=== PATIENT | male | born 1955 | race Caucasian/White ===

== ENCOUNTER 2024-06-14 22:52 | Inpatient (IN) | payer MEDICARE, SELFPAY ==
[2024-06-15 00:39] VITALS: BMI 31.2
[2024-06-15] MEDS: traZODone HCL 100 MG TABLET 200 MG PO (00:55)
[2024-06-15] MEDS: QUEtiapine Fumarate 200 MG TABLET PO ×2 (00:55→20:15)
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
[2024-06-15 06:07] LABS: Glucose, Whole Blood 109 mg/dL (60-115)
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
[2024-06-15 08:43] LABS: Cholesterol 155 mg/dL (<200); HDL Cholesterol 38 mg/dL (>40); LDL Cholesterol Calculated 48 mg/dL (<100); Triglycerides 349 mg/dL (<150)
[2024-06-15 08:59] VITALS: BP 171/83; PULSE 99; RESP 15; TEMP 36.7; O2SAT 100
[2024-06-15 09:00] LABS: Free T4 (Free Thyroxine) 0.69 ng/dL (0.71-1.85); Thyroid Stimulating Hormone 0.71 uIU/mL (0.32-4.0)
[2024-06-15] MEDS: Aspirin 81 MG TAB.CHEW PO (09:04)
[2024-06-15] MEDS: Doxazosin Mesylate 2 MG TABLET 4 MG PO (09:04)
[2024-06-15] MEDS: Divalproex Sodium 500 MG TABLET.DR PO ×2 (09:04→20:14)
[2024-06-15] MEDS: Ezetimibe 10 MG TABLET PO (09:04)
[2024-06-15] MEDS: cloNIDine HCL 0.1 MG TABLET PO ×2 (09:04→20:14)
[2024-06-15] MEDS: Ferrous Sulfate 324 MG TABLET.DR PO (09:04)
[2024-06-15 09:09] LABS: Folate 4.9 ng/mL (> or = 4.0); Vitamin B12 952 pg/mL (200-900)
[2024-06-15 09:25] LABS: Estimated Average Glucose 134 mg/dL; Hemoglobin A1C 137.3844 umol/L; Hemoglobin A1c % 6.3 % (<6.0)
[2024-06-15] MEDS: lisinopriL 5 MG TABLET PO (09:28)
[2024-06-15] MEDS: Imipramine HCl 50 MG TABLET PO ×2 (09:28→20:14)
[2024-06-15] MEDS: Bumetanide 1 MG TABLET PO (09:28)
[2024-06-15] MEDS: risperiDONE 1 MG TABLET PO ×2 (13:04→20:14)
--- NOTE | 2024-06-15 13:13 | PM.EVENT ---
Event Note Date of Service: 06/15/24 Event Note: Chart reviewed. Will arrange for HD tomorrow-06/16/24 Time Spent With Patient Time: Total time managing care of this patient today ____ minutes.
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
[2024-06-15 20:00] VITALS: BP 144/68; PULSE 77; RESP 16; TEMP 36.6; O2SAT 96
[2024-06-15] MEDS: Atorvastatin Calcium 80 MG TABLET PO (20:13)
[2024-06-15 20:14] VITALS: BP 144/68; PULSE 77
[2024-06-15] MEDS: Metoprolol Succinate ER 50 MG TAB.ER.24H PO (20:14)
[2024-06-15] MEDS: traZODone HCL 100 MG TABLET PO (20:15)
[2024-06-16 08:23] VITALS: BP 136/74
[2024-06-16] MEDS: Ezetimibe 10 MG TABLET PO (08:23)
[2024-06-16] MEDS: Doxazosin Mesylate 2 MG TABLET 4 MG PO (08:23)
[2024-06-16] MEDS: Imipramine HCl 50 MG TABLET PO ×2 (08:24→20:39)
[2024-06-16] MEDS: risperiDONE 1 MG TABLET PO ×2 (08:24→20:39)
[2024-06-16] MEDS: Divalproex Sodium 500 MG TABLET.DR PO ×2 (08:24→20:39)
[2024-06-16] MEDS: Aspirin 81 MG TAB.CHEW PO (08:24)
[2024-06-16] MEDS: Ferrous Sulfate 324 MG TABLET.DR PO (08:24)
[2024-06-16 08:33] VITALS: BP 136/74; PULSE 67; RESP 18; TEMP 36.1; O2SAT 95
[2024-06-16 10:19] LABS: HBS Num1 119.28 mIU/mL (0-7.99); HBc Num1 0.11 S/CO (0.00-0.79); HBsAGNum1 0.25 S/CO (0.00-0.99); Hepatitis B Core Antibody Nonreactive (Nonreactive); Hepatitis B Surface Antigen Negative (Negative); ~Hepatitis B Surface Antibody REACTIVE (Nonreactive)
[2024-06-16 10:32] LABS: Anion Gap 16 (12-20); Blood Urea Nitrogen 37 mg/dL (9-16); Calcium 9.2 mg/dL (8.4-10.2); Carbon Dioxide 25 mmol/L (22-29); Chloride 99 mmol/L (96-108); Estimated Glomerular Filt Rate 11; Glucose Random 210 mg/dL (60-115); Potassium 3.9 mmol/L (3.3-5.1); Sodium 136 mmol/L (135-145)
[2024-06-16 13:03] VITALS: BP 133/67; PULSE 72
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
[2024-06-16 20:00] VITALS: BP 147/70; PULSE 68; RESP 18; TEMP 36.3; O2SAT 98
[2024-06-16] MEDS: cloNIDine HCL 0.1 MG TABLET PO (20:39)
[2024-06-16] MEDS: QUEtiapine Fumarate 200 MG TABLET PO (20:39)
[2024-06-16] MEDS: Atorvastatin Calcium 80 MG TABLET PO (20:39)
[2024-06-16] MEDS: traZODone HCL 100 MG TABLET PO (20:40)
[2024-06-16] MEDS: Metoprolol Succinate ER 50 MG TAB.ER.24H PO (20:40)
[2024-06-17] MEDS: Acetaminophen 325 MG TABLET 650 MG PO (00:55)
[2024-06-17] MEDS: QUEtiapine Fumarate 50 MG TABLET PO ×2 (00:57→16:48)
[2024-06-17 08:53] VITALS: BP 186/78; PULSE 72; RESP 18; TEMP 36.6; O2SAT 100
[2024-06-17] MEDS: Ferrous Sulfate 324 MG TABLET.DR PO (09:15)
[2024-06-17] MEDS: cloNIDine HCL 0.1 MG TABLET PO ×2 (09:16→20:07)
[2024-06-17] MEDS: lisinopriL 5 MG TABLET PO (09:16)
[2024-06-17] MEDS: Imipramine HCl 50 MG TABLET PO ×2 (09:16→20:06)
[2024-06-17] MEDS: Ezetimibe 10 MG TABLET PO (09:16)
[2024-06-17] MEDS: Aspirin 81 MG TAB.CHEW PO (09:16)
[2024-06-17] MEDS: Bumetanide 1 MG TABLET PO (09:17)
[2024-06-17] MEDS: Divalproex Sodium 500 MG TABLET.DR PO ×2 (09:17→20:08)
[2024-06-17] MEDS: Doxazosin Mesylate 2 MG TABLET 4 MG PO (09:17)
[2024-06-17] MEDS: risperiDONE 1 MG TABLET PO ×2 (09:17→20:08)
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
[2024-06-17 20:07] VITALS: BP 145/66; PULSE 68
[2024-06-17] MEDS: QUEtiapine Fumarate 200 MG TABLET PO (20:07)
[2024-06-17] MEDS: Atorvastatin Calcium 80 MG TABLET PO (20:07)
[2024-06-17] MEDS: Metoprolol Succinate ER 50 MG TAB.ER.24H PO (20:07)
[2024-06-17] MEDS: traZODone HCL 100 MG TABLET PO (20:08)
[2024-06-17 20:34] VITALS: BP 145/66; PULSE 68; RESP 17; TEMP 36.5; O2SAT 98
[2024-06-18 08:34] VITALS: BP 138/66; PULSE 77; RESP 16; TEMP 36; O2SAT 98
[2024-06-18] MEDS: Bumetanide 1 MG TABLET PO (08:35)
[2024-06-18] MEDS: Divalproex Sodium 500 MG TABLET.DR PO ×2 (08:35→21:18)
[2024-06-18] MEDS: risperiDONE 1 MG TABLET PO ×2 (08:35→21:20)
[2024-06-18] MEDS: Aspirin 81 MG TAB.CHEW PO (08:35)
[2024-06-18] MEDS: lisinopriL 5 MG TABLET PO (08:35)
[2024-06-18] MEDS: Imipramine HCl 50 MG TABLET PO ×2 (08:35→21:21)
[2024-06-18] MEDS: Ezetimibe 10 MG TABLET PO (08:36)
[2024-06-18] MEDS: Doxazosin Mesylate 2 MG TABLET 4 MG PO (08:36)
[2024-06-18] MEDS: Ferrous Sulfate 324 MG TABLET.DR PO (08:36)
[2024-06-18] MEDS: cloNIDine HCL 0.1 MG TABLET PO ×2 (08:36→21:21)
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
[2024-06-18] MEDS: Acetaminophen 325 MG TABLET 650 MG PO (18:36)
[2024-06-18 20:00] VITALS: BP 174/77; PULSE 77; RESP 16; TEMP 35.8; O2SAT 95
[2024-06-18] MEDS: traZODone HCL 100 MG TABLET PO (21:18)
[2024-06-18 21:19] VITALS: BP 167/80; PULSE 77
[2024-06-18] MEDS: Atorvastatin Calcium 80 MG TABLET PO (21:19)
[2024-06-18] MEDS: Metoprolol Succinate ER 50 MG TAB.ER.24H PO (21:19)
[2024-06-18] MEDS: QUEtiapine Fumarate 200 MG TABLET PO (21:20)
[2024-06-18 21:21] VITALS: BP 162/80
[2024-06-19] MEDS: Acetaminophen 325 MG TABLET 650 MG PO (01:07)
[2024-06-19 08:00] VITALS: BP 177/81; PULSE 70; RESP 18; TEMP 36.1; O2SAT 97
--- NOTE | 2024-06-19 09:53 | PM.CNNEP ---
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 Usually undergoes dialysis Tuesday. He has been admitted to psychiatric floor. Consultation has been requested for the management of dialysis requirements. [facility] Past Medical History Medical History (Updated 06/19/24 @ 09:54 by Samuel Frederick MD) [place] toxicity ESRD on hemodialysis HTN (hypertension) HLD (hyperlipidemia) Surgical History Surgical History (Updated 06/15/24 @ 18:13 by NARGIS Gomes) History of total right hip arthroplasty Social History Social History Household Members: None Housing: Condominium Do you presently have visiting nurse or other home services: No Patient Tobacco Use Status: Never used Tobacco Tobacco use type: Cigarette Smoked in Last 30 Days: No e-Cigarette/Vaping Use: Former Use Patient Interested in Nicotine Replacement: No Patient Given Instructions on How to Stop Smoking: No Second Hand Smoke Exposure: No Use of substances other than those prescribed or required for medical reasons: No Currently Displaying Signs/Symptoms of Drug Intoxication Withdrawal: No Have you been hit, kicked, punched, or otherwise hurt by someone within the past year? If so, by whom?: No Do you feel safe in your current relationship?: No Is there a partner from a previous relationship who is making you feel unsafe now?: No Are you made to feel afraid or neglected: No Spiritual Healthcare Practices: [facility] but stopped due to dialysis Advance Directives: No Advance Directives Information Provided: No Do you have thoughts of harming others: None Do you have a plan to hurt others: No Plan Recently lost weight without trying: No Nutrition Risks: No Nutritional Risk Poor oral hygiene: No service: No Sexual orientation: Straight/Heterosexual Meds Allergies Allergy/AdvReac Type Severity Reaction Status Date / Time amlodipine Allergy Unknown Unknown Verified 06/14/24 19:14 Active Medications: Current Medications Acetaminophen (Acetaminophen 325 Mg Tablet) 650 mg PO Q6H PRN PRN Reason: Headache/Pain Mild Scale (1-3) Last Admin: 06/19/24 01:07 Dose: 650 mg Al Hydroxide/Mg Hydroxide (Magnesium Hydrox/Alum Hydrox 30 Ml Oral.Susp) 30 ml PO Q6H PRN PRN Reason: Heartburn/Nausea Aspirin (Aspirin 81 Mg Tab.Chew) 81 mg PO DAILY [facility] Last Admin: 06/18/24 08:35 Dose: 81 mg Atorvastatin Calcium (Atorvastatin Calcium 80 Mg Tablet) 80 mg PO BEDTIME [facility] Last Admin: 06/18/24 21:19 Dose: 80 mg Bumetanide (Bumetanide 1 Mg Tablet) 1 mg PO DAILY [facility]; Protocol Last Admin: 06/18/24 08:35 Dose: 1 mg Clonidine HCl (Clonidine Hcl 0.1 Mg Tablet) 0.1 mg PO BID [facility]; Protocol Last Admin: 06/18/24 21:21 Dose: 0.1 mg Divalproex Sodium (Divalproex Sodium 500 Mg Tablet.) 500 mg PO BID [facility] Last Admin: 06/18/24 21:18 Dose: 500 mg Doxazosin Mesylate (Doxazosin Mesylate 2 Mg Tablet) 4 mg PO DAILY [facility]; Protocol Last Admin: 06/18/24 08:36 Dose: 4 mg Ezetimibe (Ezetimibe 10 Mg Tablet) 10 mg PO DAILY [facility] Last Admin: 06/18/24 08:36 Dose: 10 mg Epoetin Prakash (Epoetin Prakash 10,000 Unit/Ml Vial) 10,[address] unit [address] [email or web address] [facility] Ferrous Sulfate (Ferrous Sulfate 324 Mg Tablet.) 324 mg PO DAILY [facility] Last Admin: 06/18/24 08:36 Dose: 324 mg Imipramine HCl (Imipramine Hcl 50 Mg Tablet) 50 mg PO BID [facility] Last Admin: 06/18/24 21:21 Dose: 50 mg Lisinopril (Lisinopril 5 Mg Tablet) 5 mg PO DAILY [facility]; Protocol Last Admin: 06/18/24 08:35 Dose: 5 mg Magnesium Hydroxide (Milk Of Magnesia 30 Ml Oral.Susp) 30 ml PO DAILY PRN PRN Reason: Constipation Metoprolol Succinate (Metoprolol Succinate Er 50 Mg Tab.Er.24h) 50 mg PO BEDTIME [facility]; Protocol Last Admin: 06/18/24 21:19 Dose: 50 mg Nicotine (Nicotine 21 Mg Patch.Td24) 21 mg TRANSDERMA DAILY PRN PRN Reason: Nicotine Cravings Nicotine Polacrilex (Nicotine Polacrilex 2 Mg Gum) 4 mg BUCCAL Q2H PRN PRN Reason: Nicotine Cravings Quetiapine Fumarate (Quetiapine Fumarate 200 Mg Tablet) 200 mg PO BEDTIME [facility] Last Admin: 06/18/24 21:20 Dose: 200 mg Quetiapine Fumarate (Quetiapine Fumarate 50 Mg Tablet) 50 mg PO Q6H PRN PRN Reason: agitation Last Admin: 06/17/24 16:48 Dose: 50 mg Risperidone (Risperidone 1 Mg Tablet) 1 mg PO BID [facility] Last Admin: 06/18/24 21:20 Dose: 1 mg Trazodone HCl (Trazodone Hcl 100 Mg Tablet) 100 mg PO BEDTIME [facility] Last Admin: 06/18/24 21:18 Dose: 100 mg Home Medications ?Medication ?Instructions ?Recorded ?Confirmed ?Last Taken ?Type bumetanide 1 mg tablet 1 mg PO DAILY 06/14/24 06/14/24 Unknown History clonidine HCl 0.1 mg tablet 0.1 mg PO BID 06/14/24 06/14/24 Unknown History divalproex 500 mg tablet,delayed 500 mg PO BID 06/14/24 06/14/24 Unknown History release doxazosin 4 mg tablet 4 mg PO DAILY 06/14/24 06/14/24 Unknown History imipramine HCl 50 mg tablet 50 mg PO BID 06/14/24 06/14/24 Unknown History quetiapine 100 mg tablet 200 mg PO BEDTIME 06/14/24 06/14/24 Unknown History rosuvastatin 20 mg tablet 20 mg PO BEDTIME 06/14/24 06/14/24 Unknown History aspirin 81 mg tablet 81 mg PO DAILY 06/15/24 06/15/24 Unknown History epoetin prakash 10,000 unit/mL 10,000 unit IV 3XW 06/15/24 06/15/24 Unknown History injection solution (Procrit) ezetimibe 10 mg tablet 10 mg PO DAILY 06/15/24 06/15/24 Unknown History ferrous sulfate 325 mg (65 mg 325 mg PO DAILY 06/15/24 06/15/24 Unknown History iron) tablet lisinopril 5 mg tablet 5 mg PO QAM 06/15/24 06/15/24 Unknown History metoprolol succinate 50 mg 50 mg PO BEDTIME 06/15/24 06/15/24 Unknown History tablet,extended release 24 hr omega-3 fatty acids 500 mg capsule 500 mg PO DAILY 06/15/24 06/15/24 Unknown History quetiapine 25 mg tablet 25 mg PO BID PRN auditory 06/15/24 06/15/24 Unknown History hallucination risperidone 0.5 mg tablet 0.5 mg PO BEDTIME 06/15/24 06/15/24 Unknown History trazodone 100 mg tablet 100 mg PO QAM 06/15/24 06/15/24 Unknown History trazodone 100 mg tablet 200 mg PO BEDTIME 06/15/24 06/15/24 Unknown History Physical Exam Vital Signs: Last Vital Signs Temp 96.9 F 06/19/24 08:00 Pulse 70 06/19/24 08:00 Resp 18 06/19/24 08:00 BP 177/81 H 06/19/24 08:00 Pulse Ox 97 06/19/24 08:00 O2 Del Method Room Air 06/19/24 08:00 BMI result Body Mass Index 31.2 Const General: comfortable; No acute distress Orientation/consciousness: patient oriented x3 Eyes General: appearance normal, both eyes and all related structures Visual Grant: normal visual grant by confrontation Neck Neck: Yes supple and Yes no JVD Resp Effort & Inspection: normal respiratory effort and respiratory effort not decreased Auscultation: rhonchi Cardio Palpation: no palpable S3 and no palpable S4 Heart sounds: no rubs GI Inspection: Yes normal to inspection Palpation (GI): Soft to palpation Percussion: Yes normal to percussion Auscultation: normal bowel sounds General: Yes no CVA tenderness Back/Spine/Pelvis Back: no CVA tenderness Skin General skin exam: no petechiae and no purpura Neuro General: patient oriented x3 and no focal motor deficits Extrem General: No clubbing and Yes edema (Trace) Results Lab Results 06/16/24 09:10 Lab results: Chemistry 06/16/24 09:10 Sodium 136 Potassium 3.9 Carbon Dioxide 25 BUN 37 H Creatinine 5.43 H* Calcium 9.2 Assessment and Plan (1) End stage renal disease: Status: Acute Plan 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 On hemodialysis for about a year. Currently has no signs or symptoms of uremia. Fluid status is acceptable. Continue hemodialysis 3 times a week. By AV shunt in left arm Check hemoglobin prior to next dialysis. Ordered. Based on hemoglobin I will arrange for Epogen. Calcium is in normal range. Check PTH prior to next dialysis. Ordered. Blood pressure is acceptable. She will follow along with the team. Procedures Date of Service Date of Service: 06/19/24
[2024-06-19 12:06] VITALS: BP 138/60; PULSE 70; RESP 18; TEMP 36; O2SAT 97
[2024-06-19] MEDS: Doxazosin Mesylate 2 MG TABLET 4 MG PO (12:08)
[2024-06-19] MEDS: Bumetanide 1 MG TABLET PO (12:09)
[2024-06-19] MEDS: Imipramine HCl 50 MG TABLET PO ×2 (12:09→20:39)
[2024-06-19] MEDS: lisinopriL 5 MG TABLET PO (12:10)
[2024-06-19] MEDS: Aspirin 81 MG TAB.CHEW PO (12:10)
[2024-06-19] MEDS: cloNIDine HCL 0.1 MG TABLET PO ×2 (12:10→20:38)
[2024-06-19] MEDS: Ferrous Sulfate 324 MG TABLET.DR PO (12:11)
[2024-06-19] MEDS: risperiDONE 1 MG TABLET PO ×2 (12:12→20:40)
[2024-06-19] MEDS: Ezetimibe 10 MG TABLET PO (12:12)
[2024-06-19] MEDS: Divalproex Sodium 500 MG TABLET.DR PO ×2 (12:12→20:39)
--- NOTE | 2024-06-19 15:37 | HO.PSYCHPN ---
Subjective Subjective Date of Service: 06/19/24 Reason For Visit: Schizophrenia, Cocaine Dependence, Cannabis Depend Subjective Notes: Conditional Voluntary Interim History: The nursing staff reported the patient had been compliant with treatment. Today he went to dialysis as scheduled. He states that he is very anxious about the court days. His brother called and provided the following information. He has 2 [address] days 1 for tomorrow regarding extension of his restriction order and another 1 for assault and battery against him. We wrote a letter to the court explaining about that he is currently admitted into the hospital. On interview the patient remains very paranoid against his brother he stated that he does not want to see him ever again. He is fully aware that he is having restriction order. Mental Status Exam Mental Status Exam Patient Appearance: Appropriate Patient Orientation: Person and Situation Level of Consciousness: Awake and Appropriate Patient Behavior: Guarded and Passive Mood Description: Withdrawn Affect Description: Constricted Patient Cognition Impaired: Yes Ability to Follow Directions: Good Speech Pattern: Clear Hallucinations: None Delusions: Paranoid Ideation and Ideas of Reference Thought Process: Illogical and Distracted Thought Content: positive for Preoccupation and positive for Thought Blocking Judgement: Poor Diagnostics Vital Signs (24Hr): Vital Signs - 24 hr 06/18/24 20:00 06/18/24 21:19 06/18/24 21:21 Temperature 96.5 F L Pulse Rate 77 77 Respiratory Rate 16 Blood Pressure 174/77 H 167/80 H 162/80 H Pulse Oximetry 95 Oxygen Delivery Method Room Air 06/19/24 08:00 06/19/24 12:06 Temperature 96.9 F 96.8 F Pulse Rate 70 70 Respiratory Rate 18 18 Blood Pressure 177/81 H 138/60 Pulse Oximetry 97 97 Oxygen Delivery Method Room Air Room Air BMI result Body Mass Index 31.2 Labs 06/16/24 09:10 Medications Medications Current Medications Acetaminophen (Acetaminophen 325 Mg Tablet) 650 mg PO Q6H PRN PRN Reason: Headache/Pain Mild Scale (1-3) Last Admin: 06/19/24 01:07 Dose: 650 mg Al Hydroxide/Mg Hydroxide (Magnesium Hydrox/Alum Hydrox 30 Ml Oral.Susp) 30 ml PO Q6H PRN PRN Reason: Heartburn/Nausea Aspirin (Aspirin 81 Mg Tab.Chew) 81 mg PO DAILY [facility] Last Admin: 06/19/24 12:10 Dose: 81 mg Atorvastatin Calcium (Atorvastatin Calcium 80 Mg Tablet) 80 mg PO BEDTIME [facility] Last Admin: 06/18/24 21:19 Dose: 80 mg Bumetanide (Bumetanide 1 Mg Tablet) 1 mg PO DAILY [facility]; Protocol Last Admin: 06/19/24 12:09 Dose: 1 mg Clonidine HCl (Clonidine Hcl 0.1 Mg Tablet) 0.1 mg PO BID [facility]; Protocol Last Admin: 06/19/24 12:10 Dose: 0.1 mg Divalproex Sodium (Divalproex Sodium 500 Mg Tablet.) 500 mg PO BID [facility] Last Admin: 06/19/24 12:12 Dose: 500 mg Doxazosin Mesylate (Doxazosin Mesylate 2 Mg Tablet) 4 mg PO DAILY [facility]; Protocol Last Admin: 06/19/24 12:08 Dose: 4 mg Ezetimibe (Ezetimibe 10 Mg Tablet) 10 mg PO DAILY [facility] Last Admin: 06/19/24 12:12 Dose: 10 mg Epoetin Prakash (Epoetin Prakash 10,000 Unit/Ml Vial) 10,000 unit IVPUSH [id number]@1800 [facility] Ferrous Sulfate (Ferrous Sulfate 324 Mg Tablet.) 324 mg PO DAILY [facility] Last Admin: 06/19/24 12:11 Dose: 324 mg Imipramine HCl (Imipramine Hcl 50 Mg Tablet) 50 mg PO BID [facility] Last Admin: 06/19/24 12:09 Dose: 50 mg Lisinopril (Lisinopril 5 Mg Tablet) 5 mg PO DAILY [facility]; Protocol Last Admin: 06/19/24 12:10 Dose: 5 mg Magnesium Hydroxide (Milk Of Magnesia 30 Ml Oral.Susp) 30 ml PO DAILY PRN PRN Reason: Constipation Metoprolol Succinate (Metoprolol Succinate Er 50 Mg Tab.Er.24h) 50 mg PO BEDTIME [facility]; Protocol Last Admin: 06/18/24 21:19 Dose: 50 mg Nicotine (Nicotine 21 Mg Patch.Td24) 21 mg TRANSDERMA DAILY PRN PRN Reason: Nicotine Cravings Nicotine Polacrilex (Nicotine Polacrilex 2 Mg Gum) 4 mg BUCCAL Q2H PRN PRN Reason: Nicotine Cravings Quetiapine Fumarate (Quetiapine Fumarate 200 Mg Tablet) 200 mg PO BEDTIME [facility] Last Admin: 06/18/24 21:20 Dose: 200 mg Quetiapine Fumarate (Quetiapine Fumarate 50 Mg Tablet) 50 mg PO Q6H PRN PRN Reason: agitation Last Admin: 06/17/24 16:48 Dose: 50 mg Risperidone (Risperidone 1 Mg Tablet) 1 mg PO BID [facility] Last Admin: 06/19/24 12:12 Dose: 1 mg Trazodone HCl (Trazodone Hcl 100 Mg Tablet) 100 mg PO BEDTIME [facility] Last Admin: 06/18/24 21:18 Dose: 100 mg Allergies Allergies Allergy/AdvReac Type Severity Reaction Status Date / Time amlodipine Allergy Unknown Unknown Verified 06/14/24 19:14 Assessment & Plan Assessment & Plan (1) End stage renal disease: Status: Acute Code(s): N18.6 - End stage renal disease Plan 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 On hemodialysis for about a year. Currently has no signs or symptoms of uremia. Fluid status is acceptable. Continue hemodialysis 3 times a week. By AV shunt in left arm Check hemoglobin prior to next dialysis. Ordered. Based on hemoglobin I will arrange for Epogen. Calcium is in normal range. Check PTH prior to next dialysis. Ordered. Blood pressure is acceptable. Plan 1. Continue with Risperdal as prescribed. 2. Letter to the court. 3. We will discuss with the team the possibility to refer him to [facility]. Reason for continued inpatient stay Substantial Risk for: inability to function, rapid decompensation and med/psych decompensation Time Spent With Patient Time: Total time managing care of this patient today __20__ minutes.
--- NOTE | 2024-06-19 16:56 | PC.NURSE ---
Procrit is ordered IVP today at 1800 patient does not have IV access. Call out to Irma at dialysis to clarify order. She reached out to Dr Frederick. CBC ordered tomorrow by Dr Frederick and per Dr Leidy OLIVEIRA to hold Procrit today. Need for Procrit will be decided tomorrow by .
[2024-06-19 20:00] VITALS: BP 140/67; PULSE 68; RESP 18; TEMP 36.6; O2SAT 97
[2024-06-19 20:38] VITALS: BP 140/67
[2024-06-19 20:39] VITALS: BP 140/67; PULSE 68
[2024-06-19] MEDS: Metoprolol Succinate ER 50 MG TAB.ER.24H PO (20:39)
[2024-06-19] MEDS: QUEtiapine Fumarate 200 MG TABLET PO (20:39)
[2024-06-19] MEDS: Atorvastatin Calcium 80 MG TABLET PO (20:39)
[2024-06-19] MEDS: traZODone HCL 100 MG TABLET PO (20:40)
[2024-06-20] MEDS: Acetaminophen 325 MG TABLET 650 MG PO (01:17)
[2024-06-20] MEDS: QUEtiapine Fumarate 50 MG TABLET PO ×2 (01:17→14:15)
[2024-06-20 09:44] VITALS: BP 170/74; PULSE 71; RESP 15; TEMP 36.8; O2SAT 97
[2024-06-20] MEDS: Imipramine HCl 50 MG TABLET PO ×2 (09:45→20:24)
[2024-06-20] MEDS: cloNIDine HCL 0.1 MG TABLET PO ×2 (09:45→20:23)
[2024-06-20] MEDS: Bumetanide 1 MG TABLET PO (09:45)
[2024-06-20] MEDS: Divalproex Sodium 500 MG TABLET.DR PO ×2 (09:45→20:24)
[2024-06-20] MEDS: Aspirin 81 MG TAB.CHEW PO (09:45)
[2024-06-20] MEDS: Ezetimibe 10 MG TABLET PO (09:45)
[2024-06-20] MEDS: Ferrous Sulfate 324 MG TABLET.DR PO (09:46)
[2024-06-20] MEDS: risperiDONE 1 MG TABLET PO (09:46)
[2024-06-20] MEDS: lisinopriL 5 MG TABLET PO (09:46)
[2024-06-20] MEDS: Doxazosin Mesylate 2 MG TABLET 4 MG PO (09:46)
--- NOTE | 2024-06-20 13:10 | HO.PSYCHPN ---
Subjective Subjective Date of Service: 06/20/24 Reason For Visit: Schizophrenia, Cocaine Dependence, Cannabis Depend Subjective Notes: Conditional Voluntary Interim History: The nursing staff reported the patient had hemodialysis, he reported anxiety regarding his legal cases. Remains paranoid. On interview I offer him [facility] services so he can helping in his legal case. He will consider that. We are going to increase Risperdal up to 3 mg a day. Mental Status Exam Mental Status Exam Patient Appearance: Appropriate Patient Orientation: Person and Situation Level of Consciousness: Awake and Appropriate Patient Behavior: Guarded and Passive Mood Description: Withdrawn Affect Description: Constricted Patient Cognition Impaired: Yes Ability to Follow Directions: Good Speech Pattern: Clear Hallucinations: None Delusions: Paranoid Ideation and Ideas of Reference Thought Process: Distracted and Slowed Thinking Thought Content: positive for [place] and positive for Poverty of Content Judgement: Fair Diagnostics Vital Signs (24Hr): Vital Signs - 24 hr 06/19/24 20:00 06/19/24 20:38 06/19/24 20:39 Temperature 97.9 F Pulse Rate 68 68 Respiratory Rate 18 Blood Pressure 140/67 H 140/67 H 140/67 H Pulse Oximetry 97 Oxygen Delivery Method Room Air 06/20/24 09:44 Temperature 98.2 F Pulse Rate 71 Respiratory Rate 15 Blood Pressure 170/74 H Pulse Oximetry 97 Oxygen Delivery Method Room Air BMI result Body Mass Index 31.2 Labs 06/16/24 09:10 Medications Medications Current Medications Acetaminophen (Acetaminophen 325 Mg Tablet) 650 mg PO Q6H PRN PRN Reason: Headache/Pain Mild Scale (1-3) Last Admin: 06/20/24 01:17 Dose: 650 mg Al Hydroxide/Mg Hydroxide (Magnesium Hydrox/Alum Hydrox 30 Ml Oral.Susp) 30 ml PO Q6H PRN PRN Reason: Heartburn/Nausea Aspirin (Aspirin 81 Mg Tab.Chew) 81 mg PO DAILY [facility] Last Admin: 06/20/24 09:45 Dose: 81 mg Atorvastatin Calcium (Atorvastatin Calcium 80 Mg Tablet) 80 mg PO BEDTIME [facility] Last Admin: 06/19/24 20:39 Dose: 80 mg Bumetanide (Bumetanide 1 Mg Tablet) 1 mg PO DAILY [facility]; Protocol Last Admin: 06/20/24 09:45 Dose: 1 mg Clonidine HCl (Clonidine Hcl 0.1 Mg Tablet) 0.1 mg PO BID [facility]; Protocol Last Admin: 06/20/24 09:45 Dose: 0.1 mg Divalproex Sodium (Divalproex Sodium 500 Mg Tablet.) 500 mg PO BID [facility] Last Admin: 06/20/24 09:45 Dose: 500 mg Doxazosin Mesylate (Doxazosin Mesylate 2 Mg Tablet) 4 mg PO DAILY [facility]; Protocol Last Admin: 06/20/24 09:46 Dose: 4 mg Ezetimibe (Ezetimibe 10 Mg Tablet) 10 mg PO DAILY [facility] Last Admin: 06/20/24 09:45 Dose: 10 mg Epoetin Prakash (Epoetin Prakash 10,000 Unit/Ml Vial) 10,000 unit IVPUSH [id number]@1800 [facility] Last Admin: 06/19/24 16:55 Dose: Not Given Ferrous Sulfate (Ferrous Sulfate 324 Mg Tablet.) 324 mg PO DAILY [facility] Last Admin: 06/20/24 09:46 Dose: 324 mg Imipramine HCl (Imipramine Hcl 50 Mg Tablet) 50 mg PO BID [facility] Last Admin: 06/20/24 09:45 Dose: 50 mg Lisinopril (Lisinopril 5 Mg Tablet) 5 mg PO DAILY [facility]; Protocol Last Admin: 06/20/24 09:46 Dose: 5 mg Magnesium Hydroxide (Milk Of Magnesia 30 Ml Oral.Susp) 30 ml PO DAILY PRN PRN Reason: Constipation Metoprolol Succinate (Metoprolol Succinate Er 50 Mg Tab.Er.24h) 50 mg PO BEDTIME [facility]; Protocol Last Admin: 06/19/24 20:39 Dose: 50 mg Nicotine (Nicotine 21 Mg Patch.Td24) 21 mg TRANSDERMA DAILY PRN PRN Reason: Nicotine Cravings Nicotine Polacrilex (Nicotine Polacrilex 2 Mg Gum) 4 mg BUCCAL Q2H PRN PRN Reason: Nicotine Cravings Quetiapine Fumarate (Quetiapine Fumarate 200 Mg Tablet) 200 mg PO BEDTIME [facility] Last Admin: 06/19/24 20:39 Dose: 200 mg Quetiapine Fumarate (Quetiapine Fumarate 50 Mg Tablet) 50 mg PO Q6H PRN PRN Reason: agitation Last Admin: 06/20/24 01:17 Dose: 50 mg Risperidone (Risperidone 1 Mg Tablet) 1 mg PO BID [facility] Last Admin: 06/20/24 09:46 Dose: 1 mg Trazodone HCl (Trazodone Hcl 100 Mg Tablet) 100 mg PO BEDTIME [facility] Last Admin: 06/19/24 20:40 Dose: 100 mg Allergies Allergies Allergy/AdvReac Type Severity Reaction Status Date / Time amlodipine Allergy Unknown Unknown Verified 06/14/24 19:14 Assessment & Plan Assessment & Plan (1) Schizophrenia: Status: Acute Code(s): F20.9 - Schizophrenia, unspecified (2) End stage renal disease: Status: Acute Code(s): N18.6 - End stage renal disease Plan 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 On hemodialysis for about a year. Currently has no signs or symptoms of uremia. Fluid status is acceptable. Continue hemodialysis 3 times a week. By AV shunt in left arm Check hemoglobin prior to next dialysis. Ordered. Based on hemoglobin I will arrange for Epogen. Calcium is in normal range. Check PTH prior to next dialysis. Ordered. Blood pressure is acceptable. Plan 1. Continue with Risperdal as prescribed. 2. Letter to the court. 3. We will discuss with the team the possibility to refer him to [facility]. 4. Increase Risperdal to 1 mg p.o. q.a.m. and 2 mg p.o. q.h.s.. Reason for continued inpatient stay Substantial Risk for: inability to function, rapid decompensation and med/psych decompensation Time Spent With Patient Time: Total time managing care of this patient today _20___ minutes.
[2024-06-20 20:00] VITALS: BP 156/75; PULSE 76; RESP 18; TEMP 36.3; O2SAT 96
[2024-06-20 20:23] VITALS: BP 156/75; PULSE 76
[2024-06-20] MEDS: traZODone HCL 100 MG TABLET PO (20:23)
[2024-06-20] MEDS: Atorvastatin Calcium 80 MG TABLET PO (20:23)
[2024-06-20] MEDS: QUEtiapine Fumarate 200 MG TABLET PO (20:23)
[2024-06-20] MEDS: Metoprolol Succinate ER 50 MG TAB.ER.24H PO (20:23)
[2024-06-20] MEDS: risperiDONE 2 MG TABLET PO (20:24)
[2024-06-21] MEDS: Acetaminophen 325 MG TABLET 650 MG PO ×2 (00:41→23:07)
[2024-06-21] MEDS: QUEtiapine Fumarate 50 MG TABLET PO ×2 (00:42→23:08)
[2024-06-21 07:00] VITALS: BMI 32.8
[2024-06-21 08:00] VITALS: BP 148/82; PULSE 66; RESP 17; TEMP 36.1; O2SAT 99
[2024-06-21 09:07] LABS: MANUAL DIFF FLAG NO
[2024-06-21 09:13] LABS: Basophils Percent Auto 0.6 % (0-2); Eosinophils Absolute Auto 0.1 X10*3/uL (0.0-0.4); Eosinophils Percent Auto 2.1 % (0-4); Hematocrit 27.4 % (42.0-52.0); Hemoglobin 9.6 g/dl (14.0-18.0); Imm Gran Abs Auto 0.26 X10*3/uL (0.00-0.03); Imm Gran Pct Auto 4.1 % (0.0-0.4); Lymphocytes Absolute Auto 1.7 X10*3/uL (1.2-4.9); Lymphocytes Percent Auto 27.2 % (20-40); Mean Corpuscular Hemoglobin 33.4 pg (27.0-33.0); Mean Corpuscular Volume 95.5 fL (80.0-98.0); Mean Platelet Volume 9.8 fL (9.4-12.4); Monocytes Absolute Auto 0.7 X10*3/uL (0.1-1.2); Monocytes Percent Auto 10.6 % (2-11); Neutrophils Absolute Auto 3.5 x10*3/uL (2.0-8.3); Neutrophils Percent Auto 55.4 % (45-73); Platelet Count 143 X10*3/uL (160-400); Red Blood Count 2.87 X10*6/uL (4.60-5.80); Red Cell Distribution Width 15.2 % (11.0-16.0); White Blood Count 6.3 X10*3/uL (4.8-10.8)
--- NOTE | 2024-06-21 10:26 | W.PM.DNNEP ---
Subjective Subjective Date of Service: 06/21/24 This patient was seen during dialysis. Physical Exam Vital Signs: Vital Signs: Last Vital Signs Temp 96.9 F 06/21/24 08:00 Pulse 66 06/21/24 08:00 Resp 17 06/21/24 08:00 BP 148/82 H 06/21/24 08:00 Pulse Ox 99 06/21/24 08:00 O2 Del Method Room Air 06/21/24 08:00 BMI result Body Mass Index 31.2 Awake. Comfortable. Neck is supple. Mucosa moist. Lungs bilateral scattered rhonchi. Heart S1-S2 heard no gallop. Abdomen soft. Extremities no edema. No involuntary movements. No myoclonus. 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 On hemodialysis for about a year. Currently has no signs or symptoms of uremia. Fluid status is acceptable. Continue hemodialysis 3 times a week. By AV shunt in left arm HgB 9.6 ordered Retacrit Calcium is in normal range. Check PTH prior to next dialysis. Ordered. Blood pressure is acceptable. Time Spent With Patient Time: Total time managing care of this patient today ____ minutes. Procedures Date of Service Date of Service: 06/21/24
[2024-06-21 12:33] VITALS: BP 152/77; PULSE 72
[2024-06-21] MEDS: Bumetanide 1 MG TABLET PO (12:35)
[2024-06-21] MEDS: cloNIDine HCL 0.1 MG TABLET PO ×2 (12:35→20:32)
[2024-06-21] MEDS: Divalproex Sodium 500 MG TABLET.DR PO ×2 (12:35→20:33)
[2024-06-21] MEDS: Imipramine HCl 50 MG TABLET PO ×2 (12:35→20:31)
[2024-06-21] MEDS: risperiDONE 1 MG TABLET PO (12:35)
[2024-06-21] MEDS: Ferrous Sulfate 324 MG TABLET.DR PO (12:36)
[2024-06-21] MEDS: lisinopriL 5 MG TABLET PO (12:36)
[2024-06-21] MEDS: Aspirin 81 MG TAB.CHEW PO (12:36)
[2024-06-21] MEDS: Doxazosin Mesylate 2 MG TABLET 4 MG PO (12:36)
[2024-06-21] MEDS: Ezetimibe 10 MG TABLET PO (12:36)
[2024-06-21] MEDS: Epoetin Alfa-epbx 10,000 UNIT/ML VIAL 10000 UNIT SUBCUT (13:01)
--- NOTE | 2024-06-21 14:28 | HO.PSYCHPN ---
Subjective Subjective Date of Service: 06/21/24 Reason For Visit: Schizophrenia, Cocaine Dependence, Cannabis Depend Interim History: pt requests to review anti-psychotics regimen, which is done. no other requests or complaints. per staff, schizophrenia, cocaine, cannabis. has court tomorrow on criminal charges for trying to stab his brother with a knife. taking meds. anxious. poor sleep. Mental Status Exam Mental Status Exam Patient Appearance: Appropriate Patient Orientation: Person and Situation Level of Consciousness: Awake and Appropriate Patient Behavior: Guarded and Passive Mood Description: Withdrawn Affect Description: Constricted Patient Cognition Impaired: Yes Ability to Follow Directions: Good Speech Pattern: Clear Hallucinations: None Delusions: Paranoid Ideation and Ideas of Reference Thought Process: Distracted and Slowed Thinking Thought Content: positive for [place] and positive for Poverty of Content Judgement: Fair Diagnostics Vital Signs (24Hr): Vital Signs - 24 hr 06/20/24 20:00 06/20/24 20:23 06/20/24 20:23 Temperature 97.3 F Pulse Rate 76 76 Respiratory Rate 18 Blood Pressure 156/75 H 156/75 H 156/75 H Pulse Oximetry 96 Oxygen Delivery Method Room Air 06/21/24 08:00 06/21/24 12:33 Temperature 96.9 F Pulse Rate 66 72 Respiratory Rate 17 Blood Pressure 148/82 H 152/77 H Pulse Oximetry 99 Oxygen Delivery Method Room Air BMI result Body Mass Index 31.2 Labs 06/21/24 09:03 06/16/24 09:10 Labs: Laboratory Results - last 48 hr 06/21/24 09:03 WBC 6.3 RBC 2.87 L Hgb 9.6 L Hct 27.4 L MCV 95.5 MCH 33.4 H MCHC 35.0 RDW 15.2 Plt Count 143 L MPV 9.8 Immature Gran % (Auto) 4.1 H Neut % (Auto) 55.4 Lymph % (Auto) 27.2 [place] % (Auto) 10.6 Eos % (Auto) 2.1 Baso % (Auto) 0.6 Lymph # (Auto) 1.7 [place] # (Auto) 0.7 Eos # (Auto) 0.1 Baso # (Auto) 0.0 Abs Immat Gran (auto) 0.26 H Absolute Neuts (auto) 3.5 Absolute Nucleated RBC 0.000 Nucleated RBC % (auto) 0.0 Medications Medications Current Medications Acetaminophen (Acetaminophen 325 Mg Tablet) 650 mg PO Q6H PRN PRN Reason: Headache/Pain Mild Scale (1-3) Last Admin: 06/21/24 00:41 Dose: 650 mg Al Hydroxide/Mg Hydroxide (Magnesium Hydrox/Alum Hydrox 30 Ml Oral.Susp) 30 ml PO Q6H PRN PRN Reason: Heartburn/Nausea Aspirin (Aspirin 81 Mg Tab.Chew) 81 mg PO DAILY [facility] Last Admin: 06/21/24 12:36 Dose: 81 mg Atorvastatin Calcium (Atorvastatin Calcium 80 Mg Tablet) 80 mg PO BEDTIME [facility] Last Admin: 06/20/24 20:23 Dose: 80 mg Bumetanide (Bumetanide 1 Mg Tablet) 1 mg PO DAILY [facility]; Protocol Last Admin: 06/21/24 12:35 Dose: 1 mg Clonidine HCl (Clonidine Hcl 0.1 Mg Tablet) 0.1 mg PO BID [facility]; Protocol Last Admin: 06/21/24 12:35 Dose: 0.1 mg Divalproex Sodium (Divalproex Sodium 500 Mg Tablet.) 500 mg PO BID [facility] Last Admin: 06/21/24 12:35 Dose: 500 mg Doxazosin Mesylate (Doxazosin Mesylate 2 Mg Tablet) 4 mg PO DAILY [facility]; Protocol Last Admin: 06/21/24 12:36 Dose: 4 mg Ezetimibe (Ezetimibe 10 Mg Tablet) 10 mg PO DAILY [facility] Last Admin: 06/21/24 12:36 Dose: 10 mg Ferrous Sulfate (Ferrous Sulfate 324 Mg Tablet.) 324 mg PO DAILY [facility] Last Admin: 06/21/24 12:36 Dose: 324 mg Imipramine HCl (Imipramine Hcl 50 Mg Tablet) 50 mg PO BID [facility] Last Admin: 06/21/24 12:35 Dose: 50 mg Lisinopril (Lisinopril 5 Mg Tablet) 5 mg PO DAILY [facility]; Protocol Last Admin: 06/21/24 12:36 Dose: 5 mg Magnesium Hydroxide (Milk Of Magnesia 30 Ml Oral.Susp) 30 ml PO DAILY PRN PRN Reason: Constipation Metoprolol Succinate (Metoprolol Succinate Er 50 Mg Tab.Er.24h) 50 mg PO BEDTIME [facility]; Protocol Last Admin: 06/20/24 20:23 Dose: 50 mg Nicotine (Nicotine 21 Mg Patch.Td24) 21 mg TRANSDERMA DAILY PRN PRN Reason: Nicotine Cravings Nicotine Polacrilex (Nicotine Polacrilex 2 Mg Gum) 4 mg BUCCAL Q2H PRN PRN Reason: Nicotine Cravings Quetiapine Fumarate (Quetiapine Fumarate 200 Mg Tablet) 200 mg PO BEDTIME [facility] Last Admin: 06/20/24 20:23 Dose: 200 mg Quetiapine Fumarate (Quetiapine Fumarate 50 Mg Tablet) 50 mg PO Q6H PRN PRN Reason: agitation Last Admin: 06/21/24 00:42 Dose: 50 mg Risperidone (Risperidone 1 Mg Tablet) 1 mg PO DAILY [facility] Last Admin: 06/21/24 12:35 Dose: 1 mg Risperidone (Risperidone 2 Mg Tablet) 2 mg PO BEDTIME [facility] Last Admin: 06/20/24 20:24 Dose: 2 mg Trazodone HCl (Trazodone Hcl 100 Mg Tablet) 100 mg PO BEDTIME [facility] Last Admin: 06/20/24 20:23 Dose: 100 mg Allergies Allergies Allergy/AdvReac Type Severity Reaction Status Date / Time amlodipine Allergy Unknown Unknown Verified 06/14/24 19:14 Assessment & Plan Assessment & Plan (1) Schizophrenia: Status: Acute Code(s): F20.9 - Schizophrenia, unspecified (2) End stage renal disease: Status: Acute Code(s): N18.6 - End stage renal disease Assessment and Plan: 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 On hemodialysis for about a year. Currently has no signs or symptoms of uremia. Fluid status is acceptable. Continue hemodialysis 3 times a week. By AV shunt in left arm HgB 9.6 ordered Retacrit Calcium is in normal range. Check PTH prior to next dialysis. Ordered. Blood pressure is acceptable. Plan 1. Continue with Risperdal as prescribed. 2. Letter to the court. 3. We will discuss with the team the possibility to refer him to [facility]. 4. Increase Risperdal to 1 mg p.o. q.a.m. and 2 mg p.o. q.h.s.. Reason for continued inpatient stay Substantial Risk for: harm to others, inability to function and rapid decompensation Time Spent With Patient Time: Total time managing care of this patient today __25__ minutes.
[2024-06-21 20:00] VITALS: BP 144/74; PULSE 76; RESP 16; TEMP 37.1; O2SAT 97
[2024-06-21] MEDS: risperiDONE 2 MG TABLET PO (20:30)
[2024-06-21] MEDS: QUEtiapine Fumarate 200 MG TABLET PO (20:31)
[2024-06-21 20:32] VITALS: PULSE 74
[2024-06-21] MEDS: traZODone HCL 100 MG TABLET PO (20:32)
[2024-06-21] MEDS: Metoprolol Succinate ER 50 MG TAB.ER.24H PO (20:32)
[2024-06-21] MEDS: Atorvastatin Calcium 80 MG TABLET PO (20:33)
--- NOTE | 2024-06-22 07:51 | P.PNPSI_ITS ---
Subjective Subjective Date of Service: 06/22/24 Reason For Visit: Schizophrenia, Cocaine Dependence, Cannabis Depend Subjective Notes: Conditional Voluntary Interim History: Pt slept through the night. He had dialysis yesterday. He denies suicidal or homicidal ideation. He reports he will never speak with his brother again, at least the one who lives here, his other brother is in [place]. He also denies any plan or intent to harm his brother or anyone else. He denies any concerns with his medications, which he is taking as prescribed. Review of Systems Review of Systems Patient has no acute medical complaints at this time Mental Status Exam Mental Status Exam Narrative: Appearance: wearing casual clothing, good hygiene, in NAD Behavior: cooperative and friendly Psychomotor: no agitation or retardation noted Speech: clear, normal rate/rhythm/volume, spontaneous TP: linear TC: does not want contact with brother, but open to receive psychiatric care and treatment Mood: good Affect: congruent SI: denies HI: denies, including towards brother at this point but still paranoid about him Delusions: paranoid delusions towards brothers Insight/judgment: some improvement now that he is back on medications Memory/cog: alert, oriented Diagnostics Vital Signs (24Hr): Vital Signs - 24 hr 06/21/24 08:00 06/21/24 12:33 06/21/24 20:00 Temperature 96.9 F 98.8 F Pulse Rate 66 72 76 Respiratory Rate 17 16 Blood Pressure 148/82 H 152/77 H 144/74 H Pulse Oximetry 99 97 Oxygen Delivery Method Room Air Room Air 06/21/24 20:32 Temperature Pulse Rate 74 Respiratory Rate Blood Pressure Pulse Oximetry Oxygen Delivery Method BMI result Body Mass Index 31.2 Labs 06/21/24 09:03 06/16/24 09:10 Labs: Laboratory Results - last 48 hr 06/21/24 09:03 WBC 6.3 RBC 2.87 L Hgb 9.6 L Hct 27.4 L MCV 95.5 MCH 33.4 H MCHC 35.0 RDW 15.2 Plt Count 143 L MPV 9.8 Immature Gran % (Auto) 4.1 H Neut % (Auto) 55.4 Lymph % (Auto) 27.2 [place] % (Auto) 10.6 Eos % (Auto) 2.1 Baso % (Auto) 0.6 Lymph # (Auto) 1.7 [place] # (Auto) 0.7 Eos # (Auto) 0.1 Baso # (Auto) 0.0 Abs Immat Gran (auto) 0.26 H Absolute Neuts (auto) 3.5 Absolute Nucleated RBC 0.000 Nucleated RBC % (auto) 0.0 Medications Medications Current Medications Acetaminophen (Acetaminophen 325 Mg Tablet) 650 mg PO Q6H PRN PRN Reason: Headache/Pain Mild Scale (1-3) Last Admin: 06/21/24 23:07 Dose: 650 mg Al Hydroxide/Mg Hydroxide (Magnesium Hydrox/Alum Hydrox 30 Ml Oral.Susp) 30 ml PO Q6H PRN PRN Reason: Heartburn/Nausea Aspirin (Aspirin 81 Mg Tab.Chew) 81 mg PO DAILY [facility]PLAC[facility] BY [facility] Last Admin: 06/21/24 12:36 Dose: 81 mg Atorvastatin Calcium (Atorvastatin Calcium 80 Mg Tablet) 80 mg PO BEDTIME [facility]PLACED BY [facility] Last Admin: 06/21/24 20:33 Dose: 80 mg Bumetanide (Bumetanide 1 Mg Tablet) 1 mg PO DAILY [facility]; Protocol Last Admin: 06/21/24 12:35 Dose: 1 mg Clonidine HCl (Clonidine Hcl 0.1 Mg Tablet) 0.1 mg PO BID [facility]; Protocol Last Admin: 06/21/24 20:32 Dose: 0.1 mg Divalproex Sodium (Divalproex Sodium 500 Mg Tablet.) 500 mg PO BID [facility] Last Admin: 06/21/24 20:33 Dose: 500 mg Doxazosin Mesylate (Doxazosin Mesylate 2 Mg Tablet) 4 mg PO DAILY [facility]; Protocol Last Admin: 06/21/24 12:36 Dose: 4 mg Ezetimibe (Ezetimibe 10 Mg Tablet) 10 mg PO DAILY [facility] Last Admin: 06/21/24 12:36 Dose: 10 mg Ferrous Sulfate (Ferrous Sulfate 324 Mg Tablet.) 324 mg PO DAILY [facility] Last Admin: 06/21/24 12:36 Dose: 324 mg Imipramine HCl (Imipramine Hcl 50 Mg Tablet) 50 mg PO BID [facility] Last Admin: 06/21/24 20:31 Dose: 50 mg Lisinopril (Lisinopril 5 Mg Tablet) 5 mg PO DAILY [facility]; Protocol Last Admin: 06/21/24 12:36 Dose: 5 mg Magnesium Hydroxide (Milk Of Magnesia 30 Ml Oral.Susp) 30 ml PO DAILY PRN PRN Reason: Constipation Metoprolol Succinate (Metoprolol Succinate Er 50 Mg Tab.Er.24h) 50 mg PO BEDTIME [facility]; Protocol Last Admin: 06/21/24 20:32 Dose: 50 mg Nicotine (Nicotine 21 Mg Patch.Td24) 21 mg TRANSDERMA DAILY PRN PRN Reason: Nicotine Cravings Nicotine Polacrilex (Nicotine Polacrilex 2 Mg Gum) 4 mg BUCCAL Q2H PRN PRN Reason: Nicotine Cravings Quetiapine Fumarate (Quetiapine Fumarate 200 Mg Tablet) 200 mg PO BEDTIME [facility] Last Admin: 06/21/24 20:31 Dose: 200 mg Quetiapine Fumarate (Quetiapine Fumarate 50 Mg Tablet) 50 mg PO Q6H PRN PRN Reason: agitation Last Admin: 06/21/24 23:08 Dose: 50 mg Risperidone (Risperidone 1 Mg Tablet) 1 mg PO DAILY [facility] Last Admin: 06/21/24 12:35 Dose: 1 mg Risperidone (Risperidone 2 Mg Tablet) 2 mg PO BEDTIME [facility] Last Admin: 06/21/24 20:30 Dose: 2 mg Trazodone HCl (Trazodone Hcl 100 Mg Tablet) 100 mg PO BEDTIME [facility] Last Admin: 06/21/24 20:32 Dose: 100 mg Allergies Allergies Allergy/AdvReac Type Severity Reaction Status Date / Time amlodipine Allergy Unknown Unknown Verified 06/14/24 19:14 Assessment & Plan Assessment & Plan (1) Schizophrenia: Status: Acute Code(s): F20.9 - Schizophrenia, unspecified (2) End stage renal disease: Status: Acute Code(s): N18.6 - End stage renal disease Assessment and Plan: 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 On hemodialysis for about a year. Currently has no signs or symptoms of uremia. Fluid status is acceptable. Continue hemodialysis 3 times a week. By AV shunt in left arm HgB 9.6 ordered Retacrit Calcium is in normal range. Check PTH prior to next dialysis. Ordered. Blood pressure is acceptable. Plan 1. Continue with Risperdal as prescribed. 2. Letter to the court sent. 3. continue Risperdal to 1 mg p.o. q.a.m. and 2 mg p.o. q.h.s.. Reason for continued inpatient stay Substantial Risk for: inability to function Time Spent With Patient Time: Total time managing care of this patient today ____ minutes.
[2024-06-22 08:47] VITALS: BP 175/79; PULSE 69; RESP 16; TEMP 36.2; O2SAT 100
[2024-06-22] MEDS: risperiDONE 1 MG TABLET PO (08:48)
[2024-06-22] MEDS: Ezetimibe 10 MG TABLET PO (08:48)
[2024-06-22] MEDS: Divalproex Sodium 500 MG TABLET.DR PO ×2 (08:48→20:28)
[2024-06-22] MEDS: cloNIDine HCL 0.1 MG TABLET PO ×2 (08:48→20:28)
[2024-06-22] MEDS: Bumetanide 1 MG TABLET PO (08:49)
[2024-06-22] MEDS: Aspirin 81 MG TAB.CHEW PO (08:49)
[2024-06-22] MEDS: Imipramine HCl 50 MG TABLET PO ×2 (08:49→20:28)
[2024-06-22] MEDS: lisinopriL 5 MG TABLET PO (08:49)
[2024-06-22] MEDS: Ferrous Sulfate 324 MG TABLET.DR PO (08:49)
[2024-06-22] MEDS: Doxazosin Mesylate 2 MG TABLET 4 MG PO (08:49)
[2024-06-22 20:00] VITALS: BP 172/81; PULSE 68; RESP 16; TEMP 36.8; O2SAT 98
[2024-06-22 20:28] VITALS: BP 172/81
[2024-06-22] MEDS: QUEtiapine Fumarate 200 MG TABLET PO (20:28)
[2024-06-22] MEDS: risperiDONE 2 MG TABLET PO (20:28)
[2024-06-22] MEDS: traZODone HCL 100 MG TABLET PO (20:28)
[2024-06-22 20:29] VITALS: BP 172/81; PULSE 68
[2024-06-22] MEDS: Metoprolol Succinate ER 50 MG TAB.ER.24H PO (20:29)
[2024-06-22] MEDS: Atorvastatin Calcium 80 MG TABLET PO (20:29)
[2024-06-23] MEDS: Acetaminophen 325 MG TABLET 650 MG PO (01:31)
[2024-06-23] MEDS: QUEtiapine Fumarate 50 MG TABLET PO (05:49)
--- NOTE | 2024-06-23 09:09 | HO.PSYCHPN ---
Subjective Subjective Date of Service: 06/23/24 Reason For Visit: Schizophrenia, Cocaine Dependence, Cannabis Depend Interim History: Pt slept through the night. He had dialysis earlier today. Was upset because the dialysis nurse didn't clamp his fistula correctly and it bled some. He denies suicidal or homicidal ideation. He also denies any plan or intent to harm his brother or anyone else. He denies any concerns with his medications, which he is taking as prescribed. Review of Systems Review of Systems Patient has no acute medical complaints at this time Mental Status Exam Mental Status Exam Narrative: Appearance: wearing casual clothing, good hygiene, in NAD Behavior: cooperative and friendly Psychomotor: no agitation or retardation noted Speech: clear, normal rate/rhythm/volume, spontaneous TP: linear TC: does not want contact with brother, but open to receive psychiatric care and treatment Mood: good Affect: congruent SI: denies HI: denies, including towards brother at this point but still paranoid about him Delusions: paranoid delusions towards brothers Insight/judgment: some improvement now that he is back on medications Memory/cog: alert, oriented Patient Appearance: Appropriate Patient Orientation: Person and Situation Level of Consciousness: Awake and Appropriate Patient Behavior: Guarded and Passive Mood Description: Withdrawn Affect Description: Constricted Patient Cognition Impaired: Yes Ability to Follow Directions: Good Speech Pattern: Clear Diagnostics Vital Signs (24Hr): Vital Signs - 24 hr 06/22/24 20:00 06/22/24 20:28 06/22/24 20:29 Temperature 98.3 F Pulse Rate 68 68 Respiratory Rate 16 Blood Pressure 172/81 H 172/81 H 172/81 H Pulse Oximetry 98 Oxygen Delivery Method Room Air BMI result Body Mass Index 32.8 Labs 06/21/24 09:03 06/16/24 09:10 Labs: Laboratory Results - last 48 hr 06/21/24 09:03 WBC 6.3 RBC 2.87 L Hgb 9.6 L Hct 27.4 L MCV 95.5 MCH 33.4 H MCHC 35.0 RDW 15.2 Plt Count 143 L MPV 9.8 Immature Gran % (Auto) 4.1 H Neut % (Auto) 55.4 Lymph % (Auto) 27.2 [place] % (Auto) 10.6 Eos % (Auto) 2.1 Baso % (Auto) 0.6 Lymph # (Auto) 1.7 [place] # (Auto) 0.7 Eos # (Auto) 0.1 Baso # (Auto) 0.0 Abs Immat Gran (auto) 0.26 H Absolute Neuts (auto) 3.5 Absolute Nucleated RBC 0.000 Nucleated RBC % (auto) 0.0 Medications Medications Current Medications Acetaminophen (Acetaminophen 325 Mg Tablet) 650 mg PO Q6H PRN PRN Reason: Headache/Pain Mild Scale (1-3) Last Admin: 06/23/24 01:31 Dose: 650 mg Al Hydroxide/Mg Hydroxide (Magnesium Hydrox/Alum Hydrox 30 Ml Oral.Susp) 30 ml PO Q6H PRN PRN Reason: Heartburn/Nausea Aspirin (Aspirin 81 Mg Tab.Chew) 81 mg PO DAILY [facility] Last Admin: 06/22/24 08:49 Dose: 81 mg Atorvastatin Calcium (Atorvastatin Calcium 80 Mg Tablet) 80 mg PO BEDTIME [facility] Last Admin: 06/22/24 20:29 Dose: 80 mg Bumetanide (Bumetanide 1 Mg Tablet) 1 mg PO DAILY [facility]; Protocol Last Admin: 06/22/24 08:49 Dose: 1 mg Clonidine HCl (Clonidine Hcl 0.1 Mg Tablet) 0.1 mg PO BID [facility]; Protocol Last Admin: 06/22/24 20:28 Dose: 0.1 mg Divalproex Sodium (Divalproex Sodium 500 Mg Tablet.) 500 mg PO BID [facility] Last Admin: 06/22/24 20:28 Dose: 500 mg Doxazosin Mesylate (Doxazosin Mesylate 2 Mg Tablet) 4 mg PO DAILY [facility]; Protocol Last Admin: 06/22/24 08:49 Dose: 4 mg Ezetimibe (Ezetimibe 10 Mg Tablet) 10 mg PO DAILY [facility] Last Admin: 06/22/24 08:48 Dose: 10 mg Ferrous Sulfate (Ferrous Sulfate 324 Mg Tablet.) 324 mg PO DAILY [facility] Last Admin: 06/22/24 08:49 Dose: 324 mg Imipramine HCl (Imipramine Hcl 50 Mg Tablet) 50 mg PO BID [facility] Last Admin: 06/22/24 20:28 Dose: 50 mg Lisinopril (Lisinopril 5 Mg Tablet) 5 mg PO DAILY [facility]; Protocol Last Admin: 06/22/24 08:49 Dose: 5 mg Magnesium Hydroxide (Milk Of Magnesia 30 Ml Oral.Susp) 30 ml PO DAILY PRN PRN Reason: Constipation Metoprolol Succinate (Metoprolol Succinate Er 50 Mg Tab.Er.24h) 50 mg PO BEDTIME [facility]; Protocol Last Admin: 06/22/24 20:29 Dose: 50 mg Nicotine (Nicotine 21 Mg Patch.Td24) 21 mg TRANSDERMA DAILY PRN PRN Reason: Nicotine Cravings Nicotine Polacrilex (Nicotine Polacrilex 2 Mg Gum) 4 mg BUCCAL Q2H PRN PRN Reason: Nicotine Cravings Quetiapine Fumarate (Quetiapine Fumarate 200 Mg Tablet) 200 mg PO BEDTIME [facility] Last Admin: 06/22/24 20:28 Dose: 200 mg Quetiapine Fumarate (Quetiapine Fumarate 50 Mg Tablet) 50 mg PO Q6H PRN PRN Reason: agitation Last Admin: 06/23/24 05:49 Dose: 50 mg Risperidone (Risperidone 1 Mg Tablet) 1 mg PO DAILY [facility] Last Admin: 06/22/24 08:48 Dose: 1 mg Risperidone (Risperidone 2 Mg Tablet) 2 mg PO BEDTIME [facility] Last Admin: 06/22/24 20:28 Dose: 2 mg Trazodone HCl (Trazodone Hcl 100 Mg Tablet) 100 mg PO BEDTIME [facility] Last Admin: 06/22/24 20:28 Dose: 100 mg Allergies Allergies Allergy/AdvReac Type Severity Reaction Status Date / Time amlodipine Allergy Unknown Unknown Verified 06/14/24 19:14 Assessment & Plan Assessment & Plan (1) Schizophrenia: Status: Acute Code(s): F20.9 - Schizophrenia, unspecified (2) End stage renal disease: Status: Acute Code(s): N18.6 - End stage renal disease Assessment and Plan: 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 On hemodialysis for about a year. Currently has no signs or symptoms of uremia. Fluid status is acceptable. Continue hemodialysis 3 times a week. By AV shunt in left arm HgB 9.6 ordered Retacrit Calcium is in normal range. Check PTH prior to next dialysis. Ordered. Blood pressure is acceptable. Plan 1. Continue with Risperdal as prescribed. 2. Letter to the court sent. 3. continue Risperdal to 1 mg p.o. q.a.m. and 2 mg p.o. q.h.s.. 06/23: continue current management and treatment plan. Reason for continued inpatient stay Substantial Risk for: harm to others, inability to function, rapid decompensation and med/psych decompensation Time Spent With Patient Time: Total time managing care of this patient today ____ minutes.
[2024-06-23 11:37] VITALS: BP 158/81; PULSE 80; RESP 18; TEMP 35.9; O2SAT 98
[2024-06-23] MEDS: risperiDONE 1 MG TABLET PO (11:39)
[2024-06-23] MEDS: Bumetanide 1 MG TABLET PO (11:39)
[2024-06-23] MEDS: Ezetimibe 10 MG TABLET PO (11:40)
[2024-06-23] MEDS: Imipramine HCl 50 MG TABLET PO ×2 (11:40→20:38)
[2024-06-23] MEDS: Aspirin 81 MG TAB.CHEW PO (11:41)
[2024-06-23] MEDS: Doxazosin Mesylate 2 MG TABLET 4 MG PO (11:41)
[2024-06-23] MEDS: Ferrous Sulfate 324 MG TABLET.DR PO (11:43)
[2024-06-23] MEDS: cloNIDine HCL 0.1 MG TABLET PO ×2 (11:44→20:39)
[2024-06-23] MEDS: Divalproex Sodium 500 MG TABLET.DR PO ×2 (11:44→20:39)
[2024-06-23] MEDS: lisinopriL 5 MG TABLET PO (11:44)
--- NOTE | 2024-06-23 11:47 | PC.NURSE ---
Patient was brought up to dialysis just before 0800. Dialysis was completed and per Ivis patient had a little bleeding from LAVF access site and it was clamped when I arrived at dialysis. Clam removed and no further bleeding seen so clean, dry pressure dressing was applied. Patient returned to S1 via wheelchair. Vital signs [id number]/81 RA sitting and O2 Sat 98% on room air after dialysis. No complaints offered.
[2024-06-23 20:00] VITALS: BP 154/74; PULSE 72; RESP 16; TEMP 36.3; O2SAT 97
[2024-06-23 20:38] VITALS: BP 154/74; PULSE 72
[2024-06-23] MEDS: Metoprolol Succinate ER 50 MG TAB.ER.24H PO (20:38)
[2024-06-23 20:39] VITALS: BP 154/74
[2024-06-23] MEDS: Atorvastatin Calcium 80 MG TABLET PO (20:39)
[2024-06-23] MEDS: risperiDONE 2 MG TABLET PO (20:40)
[2024-06-23] MEDS: QUEtiapine Fumarate 200 MG TABLET PO (20:40)
[2024-06-23] MEDS: traZODone HCL 100 MG TABLET PO (20:40)
[2024-06-24] MEDS: Acetaminophen 325 MG TABLET 650 MG PO ×2 (01:25→14:43)
[2024-06-24 08:37] VITALS: BP 176/79; PULSE 75; RESP 18; TEMP 36; O2SAT 100
[2024-06-24] MEDS: Doxazosin Mesylate 2 MG TABLET 4 MG PO (08:39)
[2024-06-24] MEDS: Bumetanide 1 MG TABLET PO (08:40)
[2024-06-24] MEDS: Ezetimibe 10 MG TABLET PO (08:40)
[2024-06-24] MEDS: Aspirin 81 MG TAB.CHEW PO (08:40)
[2024-06-24] MEDS: Imipramine HCl 50 MG TABLET PO ×2 (08:40→20:40)
[2024-06-24] MEDS: Ferrous Sulfate 324 MG TABLET.DR PO (08:41)
[2024-06-24] MEDS: cloNIDine HCL 0.1 MG TABLET PO ×2 (08:41→20:41)
[2024-06-24] MEDS: lisinopriL 5 MG TABLET PO (08:41)
[2024-06-24] MEDS: Divalproex Sodium 500 MG TABLET.DR PO ×2 (08:41→20:40)
[2024-06-24] MEDS: risperiDONE 1 MG TABLET PO (08:42)
--- NOTE | 2024-06-24 11:40 | P.PNPSI_ITS ---
Subjective Subjective Date of Service: 06/24/24 Reason For Visit: Schizophrenia, Cocaine Dependence, Cannabis Depend Interim History: Pt slept through the night. He reports some anxiety because of upcoming court date. He denies suicidal or homicidal ideation. He also denies any plan or intent to harm his brother or anyone else. He denies any concerns with his medications, which he is taking as prescribed. Review of Systems Review of Systems Patient has no acute medical complaints at this time Mental Status Exam Mental Status Exam Narrative: Appearance: wearing casual clothing, good hygiene, in NAD Behavior: cooperative and friendly Psychomotor: no agitation or retardation noted Speech: clear, normal rate/rhythm/volume, spontaneous TP: linear TC: does not want contact with brother, but open to receive psychiatric care and treatment Mood: good Affect: congruent SI: denies HI: denies, including towards brother at this point but still paranoid about him Delusions: paranoid delusions towards brothers Insight/judgment: some improvement now that he is back on medications Memory/cog: alert, oriented Patient Appearance: Appropriate Patient Orientation: Person and Situation Level of Consciousness: Awake and Appropriate Patient Behavior: Guarded and Passive Mood Description: Withdrawn Affect Description: Constricted Patient Cognition Impaired: Yes Ability to Follow Directions: Good Speech Pattern: Clear Diagnostics Vital Signs (24Hr): Vital Signs - 24 hr 06/23/24 20:00 06/23/24 20:38 06/23/24 20:39 Temperature 97.4 F Pulse Rate 72 72 Respiratory Rate 16 Blood Pressure 154/74 H 154/74 H 154/74 H Pulse Oximetry 97 Oxygen Delivery Method Room Air 06/24/24 08:37 Temperature 96.8 F Pulse Rate 75 Respiratory Rate 18 Blood Pressure 176/79 H Pulse Oximetry 100 Oxygen Delivery Method Room Air BMI result Body Mass Index 32.8 Labs 06/21/24 09:03 06/16/24 09:10 Medications Medications Current Medications Acetaminophen (Acetaminophen 325 Mg Tablet) 650 mg PO Q6H PRN PRN Reason: Headache/Pain Mild Scale (1-3) Last Admin: 06/24/24 01:25 Dose: 650 mg Al Hydroxide/Mg Hydroxide (Magnesium Hydrox/Alum Hydrox 30 Ml Oral.Susp) 30 ml PO Q6H PRN PRN Reason: Heartburn/Nausea Aspirin (Aspirin 81 Mg Tab.Chew) 81 mg PO DAILY [facility] Last Admin: 06/24/24 08:40 Dose: 81 mg Atorvastatin Calcium (Atorvastatin Calcium 80 Mg Tablet) 80 mg PO BEDTIME [facility] Last Admin: 06/23/24 20:39 Dose: 80 mg Bumetanide (Bumetanide 1 Mg Tablet) 1 mg PO DAILY [facility]; Protocol Last Admin: 06/24/24 08:40 Dose: 1 mg Clonidine HCl (Clonidine Hcl 0.1 Mg Tablet) 0.1 mg PO BID [facility]; Protocol Last Admin: 06/24/24 08:41 Dose: 0.1 mg Divalproex Sodium (Divalproex Sodium 500 Mg Tablet.) 500 mg PO BID [facility] Last Admin: 06/24/24 08:41 Dose: 500 mg Doxazosin Mesylate (Doxazosin Mesylate 2 Mg Tablet) 4 mg PO DAILY [facility]; Protocol Last Admin: 06/24/24 08:39 Dose: 4 mg Ezetimibe (Ezetimibe 10 Mg Tablet) 10 mg PO DAILY [facility] Last Admin: 06/24/24 08:40 Dose: 10 mg Ferrous Sulfate (Ferrous Sulfate 324 Mg Tablet.) 324 mg PO DAILY [facility] Last Admin: 06/24/24 08:41 Dose: 324 mg Imipramine HCl (Imipramine Hcl 50 Mg Tablet) 50 mg PO BID [facility] Last Admin: 06/24/24 08:40 Dose: 50 mg Lisinopril (Lisinopril 5 Mg Tablet) 5 mg PO DAILY [facility]; Protocol Last Admin: 06/24/24 08:41 Dose: 5 mg Magnesium Hydroxide (Milk Of Magnesia 30 Ml Oral.Susp) 30 ml PO DAILY PRN PRN Reason: Constipation Metoprolol Succinate (Metoprolol Succinate Er 50 Mg Tab.Er.24h) 50 mg PO BEDTIME [facility]; Protocol Last Admin: 06/23/24 20:38 Dose: 50 mg Nicotine (Nicotine 21 Mg Patch.Td24) 21 mg TRANSDERMA DAILY PRN PRN Reason: Nicotine Cravings Nicotine Polacrilex (Nicotine Polacrilex 2 Mg Gum) 4 mg BUCCAL Q2H PRN PRN Reason: Nicotine Cravings Quetiapine Fumarate (Quetiapine Fumarate 200 Mg Tablet) 200 mg PO BEDTIME [facility] Last Admin: 06/23/24 20:40 Dose: 200 mg Quetiapine Fumarate (Quetiapine Fumarate 50 Mg Tablet) 50 mg PO Q6H PRN PRN Reason: agitation Last Admin: 06/23/24 05:49 Dose: 50 mg Risperidone (Risperidone 1 Mg Tablet) 1 mg PO DAILY [facility] Last Admin: 06/24/24 08:42 Dose: 1 mg Risperidone (Risperidone 2 Mg Tablet) 2 mg PO BEDTIME [facility] Last Admin: 06/23/24 20:40 Dose: 2 mg Trazodone HCl (Trazodone Hcl 100 Mg Tablet) 100 mg PO BEDTIME [facility] Last Admin: 06/23/24 20:40 Dose: 100 mg Allergies Allergies Allergy/AdvReac Type Severity Reaction Status Date / Time amlodipine Allergy Unknown Unknown Verified 06/14/24 19:14 Assessment & Plan Assessment & Plan (1) Schizophrenia: Status: Acute Code(s): F20.9 - Schizophrenia, unspecified (2) End stage renal disease: Status: Acute Code(s): N18.6 - End stage renal disease Assessment and Plan: 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 On hemodialysis for about a year. Currently has no signs or symptoms of uremia. Fluid status is acceptable. Continue hemodialysis 3 times a week. By AV shunt in left arm HgB 9.6 ordered Retacrit Calcium is in normal range. Check PTH prior to next dialysis. Ordered. Blood pressure is acceptable. Plan 1. Continue with Risperdal as prescribed. 2. Letter to the court sent. 3. continue Risperdal to 1 mg p.o. q.a.m. and 2 mg p.o. q.h.s.. 06/23: continue current management and treatment plan. 06/24: Continue current management and treatment plan. Reason for continued inpatient stay Substantial Risk for: harm to others, inability to function, rapid decompensation and med/psych decompensation Time Spent With Patient Time: Total time managing care of this patient today ____ minutes.
[2024-06-24 20:00] VITALS: BP 182/81; PULSE 73; RESP 16; TEMP 36; O2SAT 95
[2024-06-24] MEDS: risperiDONE 2 MG TABLET PO (20:39)
[2024-06-24 20:40] VITALS: BP 182/81; PULSE 73
[2024-06-24] MEDS: Metoprolol Succinate ER 50 MG TAB.ER.24H PO (20:40)
[2024-06-24] MEDS: QUEtiapine Fumarate 200 MG TABLET PO (20:40)
[2024-06-24] MEDS: traZODone HCL 100 MG TABLET PO (20:40)
[2024-06-24] MEDS: Atorvastatin Calcium 80 MG TABLET PO (20:40)
[2024-06-24 20:41] VITALS: BP 182/81
[2024-06-25] MEDS: Acetaminophen 325 MG TABLET 650 MG PO ×3 (00:19→22:31)
[2024-06-25 00:26] VITALS: BP 132/67; PULSE 75
[2024-06-25 08:23] VITALS: BP 179/85; PULSE 72; RESP 18; TEMP 36; O2SAT 100
[2024-06-25] MEDS: Bumetanide 1 MG TABLET PO (08:31)
[2024-06-25] MEDS: Imipramine HCl 50 MG TABLET PO ×2 (08:31→20:42)
[2024-06-25] MEDS: lisinopriL 5 MG TABLET PO (08:31)
[2024-06-25] MEDS: Ferrous Sulfate 324 MG TABLET.DR PO (08:32)
[2024-06-25] MEDS: Doxazosin Mesylate 2 MG TABLET 4 MG PO (08:32)
[2024-06-25] MEDS: Ezetimibe 10 MG TABLET PO (08:32)
[2024-06-25] MEDS: Aspirin 81 MG TAB.CHEW PO (08:32)
[2024-06-25] MEDS: Divalproex Sodium 500 MG TABLET.DR PO ×2 (08:33→20:46)
[2024-06-25] MEDS: cloNIDine HCL 0.1 MG TABLET PO ×2 (08:33→20:41)
[2024-06-25] MEDS: risperiDONE 1 MG TABLET PO (08:33)
[2024-06-25 12:08] VITALS: BP 178/88; PULSE 72
--- NOTE | 2024-06-25 16:21 | P.PNPSI_ITS ---
Subjective Subjective Date of Service: 06/25/24 Reason For Visit: Schizophrenia, Cocaine Dependence, Cannabis Depend Interim History: Pt slept through the night. Pleasant. Says he is reflecting on his mental illness which started in his twenties. Says his psychiatrist saved my life with Prolixin . He reports he was at a [facility] for [facility] in the [facility]'s. He says his thoughts about killing/hurting his brother are gone. He was angry because he called a wellness check on him. He reports some anxiety because of upcoming court date. He denies suicidal or homicidal ideation. He denies any concerns with his medications, which he is taking as prescribed. Review of Systems Review of Systems Patient has no acute medical complaints at this time Mental Status Exam Mental Status Exam Narrative: Appearance: wearing casual clothing, good hygiene, in NAD Behavior: cooperative and friendly Psychomotor: no agitation or retardation noted Speech: clear, normal rate/rhythm/volume, spontaneous TP: linear TC: does not want contact with brother, but open to receive psychiatric care and treatment Mood: good Affect: congruent SI: denies HI: denies, including towards brother at this point but still paranoid about him Delusions: paranoid delusions towards brothers Insight/judgment: some improvement now that he is back on medications Memory/cog: alert, oriented Patient Appearance: Appropriate Patient Orientation: Person and Situation Level of Consciousness: Awake and Appropriate Patient Behavior: Guarded and Passive Mood Description: Withdrawn Affect Description: Constricted Patient Cognition Impaired: Yes Ability to Follow Directions: Good Speech Pattern: Clear Diagnostics Vital Signs (24Hr): Vital Signs - 24 hr 06/24/24 20:00 06/24/24 20:40 06/24/24 20:41 Temperature 96.8 F Pulse Rate 73 73 Respiratory Rate 16 Blood Pressure 182/81 H 182/81 H 182/81 H Pulse Oximetry 95 Oxygen Delivery Method Room Air 06/25/24 00:26 06/25/24 08:23 06/25/24 12:08 Temperature 96.8 F Pulse Rate 75 72 72 Respiratory Rate 18 Blood Pressure 132/67 179/85 H 178/88 H Pulse Oximetry 100 Oxygen Delivery Method Room Air BMI result Body Mass Index 32.8 Labs 06/21/24 09:03 06/16/24 09:10 Medications Medications Current Medications Acetaminophen (Acetaminophen 325 Mg Tablet) 650 mg PO Q6H PRN PRN Reason: Headache/Pain Mild Scale (1-3) Last Admin: 06/25/24 09:06 Dose: 650 mg Al Hydroxide/Mg Hydroxide (Magnesium Hydrox/Alum Hydrox 30 Ml Oral.Susp) 30 ml PO Q6H PRN PRN Reason: Heartburn/Nausea Aspirin (Aspirin 81 Mg Tab.Chew) 81 mg PO DAILY [facility] Last Admin: 06/25/24 08:32 Dose: 81 mg Atorvastatin Calcium (Atorvastatin Calcium 80 Mg Tablet) 80 mg PO BEDTIME [facility] Last Admin: 06/24/24 20:40 Dose: 80 mg Bumetanide (Bumetanide 1 Mg Tablet) 1 mg PO DAILY [facility]; Protocol Last Admin: 06/25/24 08:31 Dose: 1 mg Clonidine HCl (Clonidine Hcl 0.1 Mg Tablet) 0.1 mg PO BID [facility]; Protocol Last Admin: 06/25/24 08:33 Dose: 0.1 mg Divalproex Sodium (Divalproex Sodium 500 Mg Tablet.) 500 mg PO BID [facility] Last Admin: 06/25/24 08:33 Dose: 500 mg Doxazosin Mesylate (Doxazosin Mesylate 2 Mg Tablet) 4 mg PO DAILY [facility]; Protocol Last Admin: 06/25/24 08:32 Dose: 4 mg Ezetimibe (Ezetimibe 10 Mg Tablet) 10 mg PO DAILY [facility] Last Admin: 06/25/24 08:32 Dose: 10 mg Ferrous Sulfate (Ferrous Sulfate 324 Mg Tablet.) 324 mg PO DAILY [facility] Last Admin: 06/25/24 08:32 Dose: 324 mg Imipramine HCl (Imipramine Hcl 50 Mg Tablet) 50 mg PO BID [facility] Last Admin: 06/25/24 08:31 Dose: 50 mg Lisinopril (Lisinopril 5 Mg Tablet) 5 mg PO DAILY [facility]; Protocol Last Admin: 06/25/24 08:31 Dose: 5 mg Magnesium Hydroxide (Milk Of Magnesia 30 Ml Oral.Susp) 30 ml PO DAILY PRN PRN Reason: Constipation Metoprolol Succinate (Metoprolol Succinate Er 50 Mg Tab.Er.24h) 50 mg PO BEDTIME [facility]; Protocol Last Admin: 06/24/24 20:40 Dose: 50 mg Nicotine (Nicotine 21 Mg Patch.Td24) 21 mg TRANSDERMA DAILY PRN PRN Reason: Nicotine Cravings Nicotine Polacrilex (Nicotine Polacrilex 2 Mg Gum) 4 mg BUCCAL Q2H PRN PRN Reason: Nicotine Cravings Quetiapine Fumarate (Quetiapine Fumarate 200 Mg Tablet) 200 mg PO BEDTIME [facility] Last Admin: 06/24/24 20:40 Dose: 200 mg Quetiapine Fumarate (Quetiapine Fumarate 50 Mg Tablet) 50 mg PO Q6H PRN PRN Reason: agitation Last Admin: 06/23/24 05:49 Dose: 50 mg Risperidone (Risperidone 1 Mg Tablet) 1 mg PO DAILY [facility] Last Admin: 06/25/24 08:33 Dose: 1 mg Risperidone (Risperidone 2 Mg Tablet) 2 mg PO BEDTIME [facility] Last Admin: 06/24/24 20:39 Dose: 2 mg Trazodone HCl (Trazodone Hcl 100 Mg Tablet) 100 mg PO BEDTIME [facility] Last Admin: 06/24/24 20:40 Dose: 100 mg Allergies Allergies Allergy/AdvReac Type Severity Reaction Status Date / Time amlodipine Allergy Unknown Unknown Verified 06/14/24 19:14 Assessment & Plan Assessment & Plan (1) Schizophrenia: Status: Acute Code(s): F20.9 - Schizophrenia, unspecified (2) End stage renal disease: Status: Acute Code(s): N18.6 - End stage renal disease Assessment and Plan: 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 On hemodialysis for about a year. Currently has no signs or symptoms of uremia. Fluid status is acceptable. Continue hemodialysis 3 times a week. By AV shunt in left arm HgB 9.6 ordered Retacrit Calcium is in normal range. Check PTH prior to next dialysis. Ordered. Blood pressure is acceptable. Plan 1. Continue with Risperdal as prescribed. 2. Letter to the court sent. 3. continue Risperdal to 1 mg p.o. q.a.m. and 2 mg p.o. q.h.s.. 06/23: continue current management and treatment plan. 06/24: Continue current management and treatment plan. 06/25: Continue current management and treatment plan. Reason for continued inpatient stay Substantial Risk for: harm to others, inability to function and rapid decompensation Time Spent With Patient Time: Total time managing care of this patient today ____ minutes.
[2024-06-25 20:00] VITALS: BP 168/80; PULSE 100; RESP 18; TEMP 36.2; O2SAT 95
[2024-06-25] MEDS: Atorvastatin Calcium 80 MG TABLET PO (20:41)
[2024-06-25] MEDS: QUEtiapine Fumarate 200 MG TABLET PO (20:42)
[2024-06-25] MEDS: Metoprolol Succinate ER 50 MG TAB.ER.24H PO (20:42)
[2024-06-25] MEDS: traZODone HCL 100 MG TABLET PO (20:43)
[2024-06-25] MEDS: risperiDONE 2 MG TABLET PO (20:43)
[2024-06-25 22:44] VITALS: BP 160/80; PULSE 70; RESP 18
--- NOTE | 2024-06-26 08:26 | P.PNNP_ITS ---
Subjective Subjective Date of Service: 06/26/24 Interval history: Seen on HD this AM. Inter dialytic weight gain high. Not on renal diet. Denied any other new complaints. D/W call centre supervisor Physical Exam 2 Vital Signs: Vital Signs: Last Vital Signs Temp 97.2 F 06/25/24 20:00 Pulse 70 06/25/24 22:44 Resp 18 06/25/24 22:44 BP 160/80 H 06/25/24 22:44 Pulse Ox 95 06/25/24 20:00 O2 Del Method Room Air 06/25/24 20:00 BMI result Body Mass Index 32.8 Const: General: no acute distress Orientation/consciousness: patient oriented x3 Eyes: EOM: EOMs intact bilaterally Neck: Neck: Yes supple Resp: Auscultation: diminished lung sounds Cardio: Rate: regular rate GI: Palpation (GI): Soft to palpation Neuro: General: patient oriented x3 Extrem: General: Yes pedal edema Objective Data Labs 06/21/24 09:03 06/16/24 09:10 Procedures Date of Service Date of Service: 06/26/24 Assessment & Plan Assessment and plan (1) End stage renal disease on dialysis: Status: Acute (2) Anemia in chronic kidney disease: Status: Acute (3) HTN (hypertension): Status: Acute Plan 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 On hemodialysis for about a year and a half. Inter dialytic weight gain high; Was on regular diet Diet changed to renal diet. Seen on HD- tolerating treatment Continue hemodialysis 3 times a week. AVF functioning well HgB was 9.6- Was given Retacrit last week; Next HD Jen
[2024-06-26 09:40] VITALS: BP 174/81; PULSE 73; RESP 18; TEMP 36.4; O2SAT 97
[2024-06-26] MEDS: Divalproex Sodium 500 MG TABLET.DR PO ×2 (09:46→20:32)
[2024-06-26] MEDS: Aspirin 81 MG TAB.CHEW PO (09:46)
[2024-06-26] MEDS: Doxazosin Mesylate 2 MG TABLET 4 MG PO (09:46)
[2024-06-26] MEDS: lisinopriL 5 MG TABLET PO (09:47)
[2024-06-26] MEDS: risperiDONE 1 MG TABLET PO (09:47)
[2024-06-26] MEDS: Bumetanide 1 MG TABLET PO (09:47)
[2024-06-26] MEDS: cloNIDine HCL 0.1 MG TABLET PO ×2 (09:47→20:32)
[2024-06-26] MEDS: Ferrous Sulfate 324 MG TABLET.DR PO (09:47)
[2024-06-26] MEDS: Imipramine HCl 50 MG TABLET PO ×2 (09:48→20:32)
[2024-06-26] MEDS: Ezetimibe 10 MG TABLET PO (09:48)
--- NOTE | 2024-06-26 12:29 | P.PNPSI_ITS ---
Subjective Subjective Date of Service: 06/26/24 Reason For Visit: Schizophrenia, Cocaine Dependence, Cannabis Depend Subjective Notes: Conditional Voluntary Interim History: The nursing staff reported the patient had been anxious, he went to dialysis today and came back. He slept only 3 hours. The social service assistant reported that she called court and he has a warrant against him. The patient said to the social service assistant that he wants to be discharged as soon as possible to fix his legal problems. On interview I explained him that the best chance that he has is to work with [facility] and I offer him to file an application. If he gets discharged she could be arrested right away and we do not want at this point that outcome. Her brother called and explained him that the tribal judge is aware that he is already admitted into the unit. Mental Status Exam Mental Status Exam Patient Appearance: Appropriate Patient Orientation: Person Level of Consciousness: Awake and Appropriate Patient Behavior: Guarded and Passive Mood Description: Withdrawn Affect Description: Constricted Patient Cognition Impaired: Yes Ability to Follow Directions: Good Speech Pattern: Clear Hallucinations: None Delusions: Paranoid Ideation Thought Process: Distracted and Slowed Thinking Thought Content: positive for [place], positive for Circumstantial and positive for Thought Blocking Judgement: Fair Diagnostics Vital Signs (24Hr): Vital Signs - 24 hr 06/25/24 20:00 06/25/24 22:44 06/26/24 09:40 Temperature 97.2 F 97.6 F Pulse Rate 100 70 73 Respiratory Rate 18 18 18 Blood Pressure 168/80 H 160/80 H 174/81 H Pulse Oximetry 95 97 Oxygen Delivery Method Room Air Room Air BMI result Body Mass Index 32.8 Labs 06/21/24 09:03 06/16/24 09:10 Medications Medications Current Medications Acetaminophen (Acetaminophen 325 Mg Tablet) 650 mg PO Q6H PRN PRN Reason: Headache/Pain Mild Scale (1-3) Last Admin: 06/25/24 22:31 Dose: 650 mg Al Hydroxide/Mg Hydroxide (Magnesium Hydrox/Alum Hydrox 30 Ml Oral.Susp) 30 ml PO Q6H PRN PRN Reason: Heartburn/Nausea Aspirin (Aspirin 81 Mg Tab.Chew) 81 mg PO DAILY [facility] Last Admin: 06/26/24 09:46 Dose: 81 mg Atorvastatin Calcium (Atorvastatin Calcium 80 Mg Tablet) 80 mg PO BEDTIME [facility] Last Admin: 06/25/24 20:41 Dose: 80 mg Bumetanide (Bumetanide 1 Mg Tablet) 1 mg PO DAILY [facility]; Protocol Last Admin: 06/26/24 09:47 Dose: 1 mg Clonidine HCl (Clonidine Hcl 0.1 Mg Tablet) 0.1 mg PO BID [facility]; Protocol Last Admin: 06/26/24 09:47 Dose: 0.1 mg Divalproex Sodium (Divalproex Sodium 500 Mg Tablet.) 500 mg PO BID [facility] Last Admin: 06/26/24 09:46 Dose: 500 mg Doxazosin Mesylate (Doxazosin Mesylate 2 Mg Tablet) 4 mg PO DAILY [facility]; Protocol Last Admin: 06/26/24 09:46 Dose: 4 mg Ezetimibe (Ezetimibe 10 Mg Tablet) 10 mg PO DAILY [facility] Last Admin: 06/26/24 09:48 Dose: 10 mg Ferrous Sulfate (Ferrous Sulfate 324 Mg Tablet.) 324 mg PO DAILY [facility] Last Admin: 06/26/24 09:47 Dose: 324 mg Imipramine HCl (Imipramine Hcl 50 Mg Tablet) 50 mg PO BID [facility] Last Admin: 06/26/24 09:48 Dose: 50 mg Lisinopril (Lisinopril 5 Mg Tablet) 5 mg PO DAILY [facility]; Protocol Last Admin: 06/26/24 09:47 Dose: 5 mg Magnesium Hydroxide (Milk Of Magnesia 30 Ml Oral.Susp) 30 ml PO DAILY PRN PRN Reason: Constipation Metoprolol Succinate (Metoprolol Succinate Er 50 Mg Tab.Er.24h) 50 mg PO BEDTIME [facility]; Protocol Last Admin: 06/25/24 20:42 Dose: 50 mg Nicotine (Nicotine 21 Mg Patch.Td24) 21 mg TRANSDERMA DAILY PRN PRN Reason: Nicotine Cravings Nicotine Polacrilex (Nicotine Polacrilex 2 Mg Gum) 4 mg BUCCAL Q2H PRN PRN Reason: Nicotine Cravings Quetiapine Fumarate (Quetiapine Fumarate 200 Mg Tablet) 200 mg PO BEDTIME [facility] Last Admin: 06/25/24 20:42 Dose: 200 mg Quetiapine Fumarate (Quetiapine Fumarate 50 Mg Tablet) 50 mg PO Q6H PRN PRN Reason: agitation Last Admin: 06/23/24 05:49 Dose: 50 mg Risperidone (Risperidone 1 Mg Tablet) 1 mg PO DAILY [facility] Last Admin: 06/26/24 09:47 Dose: 1 mg Risperidone (Risperidone 2 Mg Tablet) 2 mg PO BEDTIME [facility] Last Admin: 06/25/24 20:43 Dose: 2 mg Trazodone HCl (Trazodone Hcl 100 Mg Tablet) 100 mg PO BEDTIME [facility] Last Admin: 06/25/24 20:43 Dose: 100 mg Allergies Allergies Allergy/AdvReac Type Severity Reaction Status Date / Time amlodipine Allergy Unknown Unknown Verified 06/14/24 19:14 Assessment & Plan Assessment & Plan (1) End stage renal disease on dialysis: Status: Acute Code(s): N18.6 - End stage renal disease; Z99.2 - Dependence on renal dialysis (2) Anemia in chronic kidney disease: Status: Acute Code(s): N18.9 - Chronic kidney disease, unspecified; D63.1 - Anemia in chronic kidney disease (3) HTN (hypertension): Status: Acute Code(s): I10 - Essential (primary) hypertension Plan 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 On hemodialysis for about a year and a half. Inter dialytic weight gain high; Was on regular diet Diet changed to renal diet. Seen on HD- tolerating treatment Continue hemodialysis 3 times a week. AVF functioning well HgB was 9.6- Was given Retacrit last week; Next HD Jen Plan 1. Continue with Risperdal 3 mg a day no evidence of EPS at this moment. 2. Coordination with the court and [facility] application. Reason for continued inpatient stay Substantial Risk for: inability to function, rapid decompensation and med/psych decompensation Time Spent With Patient Time: Total time managing care of this patient today __20__ minutes.
[2024-06-26 20:00] VITALS: BP 176/77; PULSE 77; RESP 18; TEMP 36.6; O2SAT 99
[2024-06-26] MEDS: risperiDONE 2 MG TABLET PO (20:32)
[2024-06-26] MEDS: Metoprolol Succinate ER 50 MG TAB.ER.24H PO (20:32)
[2024-06-26] MEDS: traZODone HCL 100 MG TABLET PO (20:32)
[2024-06-26] MEDS: QUEtiapine Fumarate 200 MG TABLET PO (20:32)
[2024-06-26] MEDS: Atorvastatin Calcium 80 MG TABLET PO (20:32)
[2024-06-27] MEDS: Acetaminophen 325 MG TABLET 650 MG PO (00:16)
[2024-06-27] MEDS: QUEtiapine Fumarate 50 MG TABLET PO (03:34)
[2024-06-27 07:59] VITALS: BP 193/89; PULSE 75; RESP 18; TEMP 36.2; O2SAT 97
[2024-06-27] MEDS: lisinopriL 5 MG TABLET PO (08:08)
[2024-06-27] MEDS: Imipramine HCl 50 MG TABLET PO ×2 (08:08→20:20)
[2024-06-27] MEDS: Doxazosin Mesylate 2 MG TABLET 4 MG PO (08:09)
[2024-06-27] MEDS: Ezetimibe 10 MG TABLET PO (08:09)
[2024-06-27] MEDS: Aspirin 81 MG TAB.CHEW PO (08:09)
[2024-06-27] MEDS: Bumetanide 1 MG TABLET PO (08:09)
[2024-06-27] MEDS: cloNIDine HCL 0.1 MG TABLET PO ×2 (08:10→20:19)
[2024-06-27] MEDS: risperiDONE 1 MG TABLET PO (08:10)
[2024-06-27] MEDS: Ferrous Sulfate 324 MG TABLET.DR PO (08:10)
[2024-06-27] MEDS: Divalproex Sodium 500 MG TABLET.DR PO ×2 (08:11→20:20)
[2024-06-27 09:22] VITALS: BP 164/77; PULSE 71
--- NOTE | 2024-06-27 14:04 | P.PNPSI_ITS ---
Subjective Subjective Date of Service: 06/27/24 Reason For Visit: Schizophrenia, Cocaine Dependence, Cannabis Depend Subjective Notes: Conditional Voluntary Interim History: The nursing staff reported the patient had been cooperative, fully compliant with treatment. On interview there was no evidence of EPS, tolerating fairly well 3 mg of Risperdal. He agreed to do a [employer] application and most likely we will be discharged him to the community with ancillary services at the end of the week. Mental Status Exam Mental Status Exam Patient Appearance: Appropriate Patient Orientation: Person and Situation Level of Consciousness: Awake and Appropriate Patient Behavior: Guarded and Passive Mood Description: Calm Affect Description: Constricted Patient Cognition Impaired: Yes Ability to Follow Directions: Good Speech Pattern: Clear Hallucinations: None Delusions: Paranoid Ideation and Ideas of Reference Thought Process: Distracted and Slowed Thinking Thought Content: positive for [place] and positive for Circumstantial Judgement: Fair Diagnostics Vital Signs (24Hr): Vital Signs - 24 hr 06/26/24 20:00 06/27/24 07:59 06/27/24 09:22 Temperature 97.8 F 97.1 F Pulse Rate 77 75 71 Respiratory Rate 18 18 Blood Pressure 176/77 H 193/89 H 164/77 H Pulse Oximetry 99 97 Oxygen Delivery Method Room Air Room Air BMI result Body Mass Index 32.8 Labs 06/21/24 09:03 06/16/24 09:10 Medications Medications Current Medications Acetaminophen (Acetaminophen 325 Mg Tablet) 650 mg PO Q6H PRN PRN Reason: Headache/Pain Mild Scale (1-3) Last Admin: 06/27/24 00:16 Dose: 650 mg Al Hydroxide/Mg Hydroxide (Magnesium Hydrox/Alum Hydrox 30 Ml Oral.Susp) 30 ml PO Q6H PRN PRN Reason: Heartburn/Nausea Aspirin (Aspirin 81 Mg Tab.Chew) 81 mg PO DAILY [facility] Last Admin: 06/27/24 08:09 Dose: 81 mg Atorvastatin Calcium (Atorvastatin Calcium 80 Mg Tablet) 80 mg PO BEDTIME [facility] Last Admin: 06/26/24 20:32 Dose: 80 mg Bumetanide (Bumetanide 1 Mg Tablet) 1 mg PO DAILY [facility]; Protocol Last Admin: 06/27/24 08:09 Dose: 1 mg Clonidine HCl (Clonidine Hcl 0.1 Mg Tablet) 0.1 mg PO BID [facility]; Protocol Last Admin: 06/27/24 08:10 Dose: 0.1 mg Divalproex Sodium (Divalproex Sodium 500 Mg Tablet.) 500 mg PO BID [facility] Last Admin: 06/27/24 08:11 Dose: 500 mg Doxazosin Mesylate (Doxazosin Mesylate 2 Mg Tablet) 4 mg PO DAILY [facility]; Protocol Last Admin: 06/27/24 08:09 Dose: 4 mg Ezetimibe (Ezetimibe 10 Mg Tablet) 10 mg PO DAILY [facility] Last Admin: 06/27/24 08:09 Dose: 10 mg Ferrous Sulfate (Ferrous Sulfate 324 Mg Tablet.) 324 mg PO DAILY [facility] Last Admin: 06/27/24 08:10 Dose: 324 mg Imipramine HCl (Imipramine Hcl 50 Mg Tablet) 50 mg PO BID [facility] Last Admin: 06/27/24 08:08 Dose: 50 mg Lisinopril (Lisinopril 5 Mg Tablet) 5 mg PO DAILY [facility]; Protocol Last Admin: 06/27/24 08:08 Dose: 5 mg Magnesium Hydroxide (Milk Of Magnesia 30 Ml Oral.Susp) 30 ml PO DAILY PRN PRN Reason: Constipation Metoprolol Succinate (Metoprolol Succinate Er 50 Mg Tab.Er.24h) 50 mg PO BEDTIME [facility]; Protocol Last Admin: 06/26/24 20:32 Dose: 50 mg Nicotine (Nicotine 21 Mg Patch.Td24) 21 mg TRANSDERMA DAILY PRN PRN Reason: Nicotine Cravings Nicotine Polacrilex (Nicotine Polacrilex 2 Mg Gum) 4 mg BUCCAL Q2H PRN PRN Reason: Nicotine Cravings Quetiapine Fumarate (Quetiapine Fumarate 200 Mg Tablet) 200 mg PO BEDTIME [facility] Last Admin: 06/26/24 20:32 Dose: 200 mg Quetiapine Fumarate (Quetiapine Fumarate 50 Mg Tablet) 50 mg PO Q6H PRN PRN Reason: agitation Last Admin: 06/27/24 03:34 Dose: 50 mg Risperidone (Risperidone 1 Mg Tablet) 1 mg PO DAILY [facility] Last Admin: 06/27/24 08:10 Dose: 1 mg Risperidone (Risperidone 2 Mg Tablet) 2 mg PO BEDTIME [facility] Last Admin: 06/26/24 20:32 Dose: 2 mg Trazodone HCl (Trazodone Hcl 100 Mg Tablet) 100 mg PO BEDTIME [facility] Last Admin: 06/26/24 20:32 Dose: 100 mg Allergies Allergies Allergy/AdvReac Type Severity Reaction Status Date / Time amlodipine Allergy Unknown Unknown Verified 06/14/24 19:14 Assessment & Plan Assessment & Plan (1) End stage renal disease on dialysis: Status: Acute Code(s): N18.6 - End stage renal disease; Z99.2 - Dependence on renal dialysis (2) Anemia in chronic kidney disease: Status: Acute Code(s): N18.9 - Chronic kidney disease, unspecified; D63.1 - Anemia in chronic kidney disease (3) HTN (hypertension): Status: Acute Code(s): I10 - Essential (primary) hypertension Plan 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 On hemodialysis for about a year and a half. Inter dialytic weight gain high; Was on regular diet Diet changed to renal diet. Seen on HD- tolerating treatment Continue hemodialysis 3 times a week. AVF functioning well HgB was 9.6- Was given Retacrit last week; Next HD Jen Plan 1. Continue with Risperdal 3 mg a day no evidence of EPS at this moment. 2. Coordination with the court and [facility] application. Reason for continued inpatient stay Substantial Risk for: inability to function, rapid decompensation and med/psych decompensation Time Spent With Patient Time: Total time managing care of this patient today __20__ minutes.
--- NOTE | 2024-06-27 14:14 | MHC.CLN ---
NUTRITION PATIENT WITH ESRD AND RECEIVES HEMODIALYSIS. DIET CHANGED PER PROVIDER TO 2 GRAM SODIUM, LOW PHOSPHORUS, LOW POTASSIUM WITH 1500 ML/DAY FLUID RESTRICTION. DISCUSSED DIET WITH UNIT STAFF. INTAKE USUALLY VERY GOOD.
[2024-06-27 20:00] VITALS: BP 160/86; PULSE 76; RESP 18; TEMP 36.8; O2SAT 95
[2024-06-27] MEDS: Atorvastatin Calcium 80 MG TABLET PO (20:19)
[2024-06-27] MEDS: Metoprolol Succinate ER 50 MG TAB.ER.24H PO (20:20)
[2024-06-27] MEDS: QUEtiapine Fumarate 200 MG TABLET PO (20:21)
[2024-06-27] MEDS: risperiDONE 2 MG TABLET PO (20:21)
[2024-06-27] MEDS: traZODone HCL 100 MG TABLET PO (20:21)
[2024-06-28] MEDS: Acetaminophen 325 MG TABLET 650 MG PO (00:40)
[2024-06-28] MEDS: QUEtiapine Fumarate 50 MG TABLET PO (03:31)
[2024-06-28 08:00] VITALS: BP 160/74; PULSE 75; RESP 18; O2SAT 97
[2024-06-28 10:50] VITALS: BMI 33.8
--- NOTE | 2024-06-28 13:05 | HO.PSYCHPN ---
Subjective Subjective Date of Service: 06/28/24 Reason For Visit: Schizophrenia, Cocaine Dependence, Cannabis Depend Subjective Notes: Conditional Voluntary Interim History: The nursing staff reported the patient had been compliant with treatment, his blood pressure was slightly high in the afternoon but took his medications. He slept 6 hours pleasant cooperative. He is fully aware that he can not approach his brother he was served with legal papers by the sheriff detective yesterday. On interview the patient denies new symptoms he is willing to be discharged tomorrow. Aftercare is in process. Mental Status Exam Mental Status Exam Patient Appearance: Well Grooomed and Appropriate Patient Orientation: Person and Situation Level of Consciousness: Awake and Appropriate Patient Behavior: Guarded and Passive Mood Description: Withdrawn Affect Description: Constricted Patient Cognition Impaired: Yes Ability to Follow Directions: Good Speech Pattern: Clear Hallucinations: None Delusions: Ideas of Reference Thought Process: Distracted and Slowed Thinking Thought Content: positive for [place] and positive for Circumstantial Judgement: Fair Diagnostics Vital Signs (24Hr): Vital Signs - 24 hr 06/27/24 20:00 06/28/24 08:00 Temperature 98.2 F Pulse Rate 76 75 Respiratory Rate 18 18 Blood Pressure 160/86 H 160/74 H Pulse Oximetry 95 97 Oxygen Delivery Method Room Air Room Air BMI result Body Mass Index 33.8 Labs 06/21/24 09:03 06/16/24 09:10 Medications Medications Current Medications Acetaminophen (Acetaminophen 325 Mg Tablet) 650 mg PO Q6H PRN PRN Reason: Headache/Pain Mild Scale (1-3) Last Admin: 06/28/24 00:40 Dose: 650 mg Al Hydroxide/Mg Hydroxide (Magnesium Hydrox/Alum Hydrox 30 Ml Oral.Susp) 30 ml PO Q6H PRN PRN Reason: Heartburn/Nausea Aspirin (Aspirin 81 Mg Tab.Chew) 81 mg PO DAILY [facility] Last Admin: 06/27/24 08:09 Dose: 81 mg Atorvastatin Calcium (Atorvastatin Calcium 80 Mg Tablet) 80 mg PO BEDTIME [facility] Last Admin: 06/27/24 20:19 Dose: 80 mg Bumetanide (Bumetanide 1 Mg Tablet) 1 mg PO DAILY [facility]; Protocol Last Admin: 06/27/24 08:09 Dose: 1 mg Clonidine HCl (Clonidine Hcl 0.1 Mg Tablet) 0.1 mg PO BID [facility]; Protocol Last Admin: 06/27/24 20:19 Dose: 0.1 mg Divalproex Sodium (Divalproex Sodium 500 Mg Tablet.) 500 mg PO BID [facility] Last Admin: 06/27/24 20:20 Dose: 500 mg Doxazosin Mesylate (Doxazosin Mesylate 2 Mg Tablet) 4 mg PO DAILY [facility]; Protocol Last Admin: 06/27/24 08:09 Dose: 4 mg Ezetimibe (Ezetimibe 10 Mg Tablet) 10 mg PO DAILY [facility] Last Admin: 06/27/24 08:09 Dose: 10 mg Ferrous Sulfate (Ferrous Sulfate 324 Mg Tablet.) 324 mg PO DAILY [facility] Last Admin: 06/27/24 08:10 Dose: 324 mg Imipramine HCl (Imipramine Hcl 50 Mg Tablet) 50 mg PO BID [facility] Last Admin: 06/27/24 20:20 Dose: 50 mg Lisinopril (Lisinopril 5 Mg Tablet) 5 mg PO DAILY [facility]; Protocol Last Admin: 06/27/24 08:08 Dose: 5 mg Magnesium Hydroxide (Milk Of Magnesia 30 Ml Oral.Susp) 30 ml PO DAILY PRN PRN Reason: Constipation Metoprolol Succinate (Metoprolol Succinate Er 50 Mg Tab.Er.24h) 50 mg PO BEDTIME [facility]; Protocol Last Admin: 06/27/24 20:20 Dose: 50 mg Nicotine (Nicotine 21 Mg Patch.Td24) 21 mg TRANSDERMA DAILY PRN PRN Reason: Nicotine Cravings Nicotine Polacrilex (Nicotine Polacrilex 2 Mg Gum) 4 mg BUCCAL Q2H PRN PRN Reason: Nicotine Cravings Quetiapine Fumarate (Quetiapine Fumarate 200 Mg Tablet) 200 mg PO BEDTIME [facility] Last Admin: 06/27/24 20:21 Dose: 200 mg Quetiapine Fumarate (Quetiapine Fumarate 50 Mg Tablet) 50 mg PO Q6H PRN PRN Reason: agitation Last Admin: 06/28/24 03:31 Dose: 50 mg Risperidone (Risperidone 1 Mg Tablet) 1 mg PO DAILY [facility] Last Admin: 06/27/24 08:10 Dose: 1 mg Risperidone (Risperidone 2 Mg Tablet) 2 mg PO BEDTIME [facility] Last Admin: 06/27/24 20:21 Dose: 2 mg Trazodone HCl (Trazodone Hcl 100 Mg Tablet) 100 mg PO BEDTIME [facility] Last Admin: 06/27/24 20:21 Dose: 100 mg Allergies Allergies Allergy/AdvReac Type Severity Reaction Status Date / Time amlodipine Allergy Unknown Unknown Verified 06/14/24 19:14 Assessment & Plan Assessment & Plan (1) End stage renal disease on dialysis: Status: Acute Code(s): N18.6 - End stage renal disease; Z99.2 - Dependence on renal dialysis (2) Anemia in chronic kidney disease: Status: Acute Code(s): N18.9 - Chronic kidney disease, unspecified; D63.1 - Anemia in chronic kidney disease (3) HTN (hypertension): Status: Acute Code(s): I10 - Essential (primary) hypertension Plan 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 On hemodialysis for about a year and a half. Inter dialytic weight gain high; Was on regular diet Diet changed to renal diet. Seen on HD- tolerating treatment Continue hemodialysis 3 times a week. AVF functioning well HgB was 9.6- Was given Retacrit last week; Next HD Jen Plan 1. Continue with Risperdal 3 mg a day no evidence of EPS at this moment. 2. Coordination with the court and [facility] application. Reason for continued inpatient stay Substantial Risk for: inability to function, rapid decompensation and med/psych decompensation Time Spent With Patient Time: Total time managing care of this patient today __20__ minutes.
[2024-06-28 18:15] VITALS: BP 160/80; PULSE 81; RESP 18; TEMP 36.6; O2SAT 98
[2024-06-28 20:00] VITALS: BP 159/74; PULSE 93; RESP 18; TEMP 36.6; O2SAT 95
[2024-06-28] MEDS: risperiDONE 2 MG TABLET PO (21:03)
[2024-06-28] MEDS: Imipramine HCl 50 MG TABLET PO (21:03)
[2024-06-28] MEDS: Atorvastatin Calcium 80 MG TABLET PO (21:03)
[2024-06-28] MEDS: Divalproex Sodium 500 MG TABLET.DR PO (21:03)
[2024-06-28] MEDS: QUEtiapine Fumarate 200 MG TABLET PO (21:03)
[2024-06-28] MEDS: traZODone HCL 100 MG TABLET PO (21:03)
[2024-06-28] MEDS: cloNIDine HCL 0.1 MG TABLET PO (21:03)
[2024-06-28] MEDS: Metoprolol Succinate ER 50 MG TAB.ER.24H PO (21:03)
[2024-06-29] MEDS: Acetaminophen 325 MG TABLET 650 MG PO (02:02)
[2024-06-29] MEDS: QUEtiapine Fumarate 50 MG TABLET PO (02:02)
[2024-06-29 08:00] VITALS: BP 151/72; PULSE 74; RESP 18; TEMP 36.2; O2SAT 97
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
[2024-06-29] MEDS: Ezetimibe 10 MG TABLET PO (08:25)
[2024-06-29] MEDS: Divalproex Sodium 500 MG TABLET.DR PO (08:25)
[2024-06-29] MEDS: Aspirin 81 MG TAB.CHEW PO (08:25)
[2024-06-29] MEDS: Bumetanide 1 MG TABLET PO (08:25)
[2024-06-29] MEDS: risperiDONE 1 MG TABLET PO (08:25)
[2024-06-29] MEDS: Ferrous Sulfate 324 MG TABLET.DR PO (08:25)
[2024-06-29] MEDS: lisinopriL 5 MG TABLET PO (08:26)
[2024-06-29] MEDS: cloNIDine HCL 0.1 MG TABLET PO (08:26)
[2024-06-29] MEDS: Imipramine HCl 50 MG TABLET PO (08:26)
[2024-06-29] MEDS: Doxazosin Mesylate 2 MG TABLET 4 MG PO (08:26)
== END 2024-06-29 11:05 | disposition home or self-care (01) | DRG 885 ==
PROVIDERS: Clinical Nurse Specialist Psychiatric/Mental Health, Adult; Internal Medicine Hypertension Specialist; Admitting Provider Social Worker; Visit Provider Social Worker
DX: F20.9 Schizophrenia, unspecified (principal); N18.6 End stage renal disease; I12.0 Hypertensive chronic kidney disease with stage 5 chronic kidney disease or end stage renal disease; R45.850 Homicidal ideations; T43.595S Adverse effect of other antipsychotics and neuroleptics, sequela; E78.5 Hyperlipidemia, unspecified; N14.19 Nephropathy induced by other drugs, medicaments and biological substances; Z99.2 Dependence on renal dialysis; Z79.82 Long term (current) use of aspirin; Z79.899 Other long term (current) drug therapy
CPT/HCPCS: 36415; 80048; 80061; 82607; 82746; 82947; 83036; 83735; 84439; 84443; 85025; 86704; 86706; 87340; 90999; Q5106

== ENCOUNTER → 2024-06-14 22:52 | Outpatient (BNV) | payer MEDICARE, SELFPAY | PROVIDERS: Admitting Provider Social Worker; Visit Provider Student in an Organized Health Care Education/Training Program | DX: Z00.8 Encounter for other general examination (principal) | CPT/HCPCS: 99429 ==

== ENCOUNTER → 2024-06-14 22:52 | Outpatient (BNV) | payer MEDICARE, SELFPAY | PROVIDERS: Admitting Provider Social Worker; Visit Provider Social Worker | DX: F20.0 Paranoid schizophrenia (principal); N18.6 End stage renal disease; Z99.2 Dependence on renal dialysis | CPT/HCPCS: 90792; 99231; 99232; 99238 ==

== ENCOUNTER → 2024-06-14 22:52 | Outpatient (BNV) | payer MEDICARE, SELFPAY | PROVIDERS: Admitting Provider Social Worker; Visit Provider Internal Medicine Hypertension Specialist | DX: I12.0 Hypertensive chronic kidney disease with stage 5 chronic kidney disease or end stage renal disease (principal); N18.6 End stage renal disease; Z99.2 Dependence on renal dialysis; D63.1 Anemia in chronic kidney disease | CPT/HCPCS: 90935; 99223; 99499 ==